=== PATIENT | male | born 1960 | race Caucasian/White ===

== ENCOUNTER 2020-03-14 11:54 | Emergency (ER) | payer MEDICARE ==
[2020-03-14 12:31] VITALS: TEMP 102.3
[2020-03-14] MEDS ORDERED: ACETAMINOPHEN TAB 325 MG TAB PO STA (12:58)
--- NOTE | 2020-03-14 13:43 | XR ---
EXAMINATION TYPE: XR chest 1V portable DATE OF EXAM: 03/14/2020 HISTORY: Shortness of breath. COMPARISON: None. TECHNIQUE: Single view of the chest is submitted. FINDINGS: Demonstrated are scattered senescent parenchymal change. Increased density in the lungs as well strandy basilar reflect developing infiltrate. Correlate clini brayan and consider progress studies. The heart is stable. Hilar and mediastinal structures are within normal limits. Degenerative changes are seen of the dorsal spine. IMPRESSION: 1. Increased density in the lungs as well strandy basilar reflect developing infiltrate. Correlate c linically and consider progress studies.
[2020-03-14] MEDS ORDERED: SODIUM CHLORIDE 0.9% 1,000 ML IV ONE (13:49)
[2020-03-14 13:50] LABS: Basophils % (A) 1 %; Eosinophils % (A) 0 %; HCT 45.5 % (39.0-53.0); Lymphocytes # (A) 0.8 k/uL (1.0-4.8); Lymphocytes % (A) 10 %; MCH 28.4 pg (25.0-35.0); MCV 86.3 fL (80.0-100.0); Mean Platelet Volume 6.8; Monocytes # (A) 0.6 k/uL (0-1.0); Monocytes % (A) 7 %; Neutrophils # (A) 6.1 k/uL (1.3-7.7); Neutrophils % (A) 80 %; Platelet Count 255 k/uL (150-450); RBC 5.27 m/uL (4.30-5.90); RDW 12.5 % (11.5-15.5); WBC 7.7 k/uL (3.8-10.6)
--- NOTE | 2020-03-14 13:51 | ED ---
SOB HPI - General Source: patient Mode of arrival: wheelchair Limitations: no limitations <Ana Neff - Last Filed: 03/14/20 14:16> <Peter Sepulveda - Last Filed: 03/14/20 14:54> - General Chief Complaint: Shortness of Breath Stated Complaint: Covid Symptoms Time Seen by Provider: 03/14/20 12:25 - History of Present Illness Initial Comments: 59-year-old male with significant CAD hx presenting today for chief complaint of generalized weakness fevers fatigue and SOB. Patient states that he was exposed to covert about 10 days ago. Patient states that a friend tested positive on Saturday of last week. Patient states by Saturday of the friend testing positive. His family was experiencing symptoms he states his has had cough shortness of breath and weakness. He states that his symptoms have consisted of fever generalized weakness fatigue and increasing shortness of breath. Patient denies any chest pain nausea vomiting diarrhea. He denies any neck stiffness but does endorse some headaches. Patient denies any visual changes localized weakness. Patient denies any pain deep inspiration or leg swelling. When shortest of breath increasing over the past 2 days he was concerned and presented to the emergency room for further evaluation (Ana Neff) - Related Data Allergies Allergy/AdvReac Type Severity Reaction Status Date / Time No Known Allergies Allergy Verified 03/14/20 12:08 Review of Systems ROS Other: All systems not noted in ROS Statement are negative. <Ana Neff - Last Filed: 03/14/20 14:16> ROS Other: All systems not noted in ROS Statement are negative. <Peter Sepulveda - Last Filed: 03/14/20 14:54> ROS Statement: Those systems with pertinent positive or pertinent negative responses have been documented in the HPI. Past Medical History Past Medical History: Hyperlipidemia, Hypertension, Myocardial Infarction ([place]) History of Any Multi-Drug Resistant Organisms: None Reported Past Surgical History: Heart Catheterization With Stent, Orthopedic Surgery Additional Past Surgical History / Comment(s): kindey surgery Past Psychological History: No Psychological Hx Reported Smoking Status: Never smoker Past Alcohol Use History: None Reported Past Drug Use History: None Reported <Ana Neff - Last Filed: 03/14/20 14:16> General Exam Limitations: no limitations <Ana Neff - Last Filed: 03/14/20 14:16> - General Exam Comments Initial Comments: General: The patient is awake and alert, in no distress Eye: +3 mm pupils are equal, round and reactive to light, extra-ocular movements are intact. No nystagmus. There is normal conjunctiva bilaterally. No signs of icterus. Ears, nose, mouth and throat: There are moist mucous membranes and no oral lesions. Neck: The neck is supple, there is no tenderness or JVD. Cardiovascular: There is a regular rate and rhythm. No murmur, rub or gallop is appreciated. Respiratory: Lungs are clear to auscultation, respirations are non-labored, breath sounds are equal. No wheezes, stridor, rales, or rhonchi. Gastrointestinal: Soft, non-distended, non-tender abdomen without masses or organomegaly noted. There is no rebound or guarding present. Musculoskeletal: Normal ROM, no tenderness. Strength 5/5. Sensation intact. Radial pulses equal bilaterally 2+. Neurological: A&O x 3. CN II-XII intact grossly, There are no obvious motor or sensory deficits. Coordination appears grossly intact. Speech is normal. Skin: Skin is warm and dry and no rashes or lesions are noted. No LE edema Psychiatric: Cooperative, appropriate mood & affect, normal judgment. (Ana Neff) Course <Ana Neff - Last Filed: 03/14/20 14:16> Vital Signs 03/14/20 03/14/20 03/14/20 12:04 12:24 13:26 Temperature 101.8 F H 102.3 F H Pulse Rate 85 83 Respiratory 18 14 Rate Blood Pressure 126/78 O2 Sat by Pulse 98 95 Oximetry 03/14/20 03/14/20 03/14/20 13:30 13:40 13:50 Temperature Pulse Rate 82 81 81 Respiratory 20 20 20 Rate Blood Pressure O2 Sat by Pulse 95 93 L 94 L Oximetry 03/14/20 03/14/20 03/14/20 14:00 14:10 14:20 Temperature Pulse Rate 79 80 80 Respiratory 20 19 20 Rate Blood Pressure O2 Sat by Pulse 92 L 93 L 93 L Oximetry 03/14/20 14:30 Temperature Pulse Rate 73 Respiratory 22 Rate Blood Pressure 113/74 O2 Sat by Pulse 95 Oximetry - Reevaluation(s) Reevaluation #1: 03/14/20 14:16 signed out to Derick pending [facility] will evaluated and dispo patient (Ana Neff) Medical Decision Making - Lab Data Result diagrams: 03/14/20 13:16 03/14/20 13:16 <AishwaryaAna Desir - Last Filed: 03/14/20 14:16> - Lab Data Result diagrams: 03/14/20 13:16 03/14/20 13:16 <Peter Sepulveda - Last Filed: 03/14/20 14:54> - Medical Decision Making Patient is signed out to me by physician events administrative assistant Shima Stringer. Briefly, patient is a 5-year-old male who was exposed to someone with coronavirus last week. He has been expressing worsening shortness of breath. Upon arrival patient was febrile with temperatures of 102.3. Plan + out was to follow-up w [facility] pending lab studies. CBC, coag panel, metabolic panel is unremarkable. CRP is 180.6. Coronavirus test is positive. Chest x-ray shows bilateral hazy infiltrates. Patient is reevaluated bedside has been stable medical condition. Is not hypoxic. Been symptomatic for approximately 4 days. Patient is agreeable for discharge. He can monitor his symptoms at home and seek immediate medical attention of his symptomatology worsens. Patient advised to buy a pulse oximeter to monitor his oxygen levels at home (Peter Sepulveda) - Lab Data Lab Results 03/14/20 03/14/20 03/14/20 Range/Units 13:16 13:16 13:16 WBC 7.7 (3.8-10.6) k/uL RBC 5.27 (4.30-5.90) m/uL Hgb 15.0 (13.0-17.5) gm/dL Hct 45.5 (39.0-53.0) % MCV 86.3 (80.0-100.0) fL MCH 28.4 (25.0-35.0) pg MCHC 33.0 (31.0-37.0) g/dL RDW 12.5 (11.5-15.5) % Plt Count 255 (150-450) k/uL MPV 6.8 Neutrophils % 80 % Lymphocytes % 10 % Monocytes % 7 % Eosinophils % 0 % Basophils % 1 % Neutrophils # 6.1 (1.3-7.7) k/uL Lymphocytes # 0.8 L (1.0-4.8) k/uL Monocytes # 0.6 (0-1.0) k/uL Eosinophils # 0.0 (0-0.7) k/uL Basophils # 0.0 (0-0.2) k/uL PT 10.3 (9.0-12.0) sec INR 1.0 (<1.2) APTT 25.0 (22.0-30.0) sec Sodium 135 L (137-145) mmol/L Potassium 4.4 (3.5-5.1) mmol/L Chloride 102 (98-107) mmol/L Carbon Dioxide 23 (22-30) mmol/L Anion Gap 10 mmol/L BUN 22 H (9-20) mg/dL Creatinine 0.93 (0.66-1.25) mg/dL Est GFR (CKD-EPI)AfAm >90 (>60 ml/min/1.73 sqM) Est GFR (CKD-EPI)NonAf 89 (>60 ml/min/1.73 sqM) Glucose 139 H (74-99) mg/dL Plasma Lactic Acid Jose (0.7-2.0) mmol/L Calcium 8.9 (8.4-10.2) mg/dL Magnesium 2.2 (1.6-2.3) mg/dL Total Bilirubin 1.1 (0.2-1.3) mg/dL AST 31 (17-59) U/L ALT 19 (4-49) U/L Alkaline Phosphatase 83 (38-126) U/L Lactate Dehydrogenase 751 H (313-618) U/L C-Reactive Protein 180.6 H (<10.0) mg/L Total Protein 7.0 (6.3-8.2) g/dL Albumin 4.0 (3.5-5.0) g/dL Coronavirus (PCR) (Not Detectd) 03/14/20 03/14/20 Range/Units 13:16 13:16 WBC (3.8-10.6) k/uL RBC (4.30-5.90) m/uL Hgb (13.0-17.5) gm/dL Hct (39.0-53.0) % MCV (80.0-100.0) fL MCH (25.0-35.0) pg MCHC (31.0-37.0) g/dL RDW (11.5-15.5) % Plt Count (150-450) k/uL MPV Neutrophils % % Lymphocytes % % Monocytes % % Eosinophils % % Basophils % % Neutrophils # (1.3-7.7) k/uL Lymphocytes # (1.0-4.8) k/uL Monocytes # (0-1.0) k/uL Eosinophils # (0-0.7) k/uL Basophils # (0-0.2) k/uL PT (9.0-12.0) sec INR (<1.2) APTT (22.0-30.0) sec Sodium (137-145) mmol/L Potassium (3.5-5.1) mmol/L Chloride (98-107) mmol/L Carbon Dioxide (22-30) mmol/L Anion Gap mmol/L BUN (9-20) mg/dL Creatinine (0.66-1.25) mg/dL Est GFR (CKD-EPI)AfAm (>60 ml/min/1.73 sqM) Est GFR (CKD-EPI)NonAf (>60 ml/min/1.73 sqM) Glucose (74-99) mg/dL Plasma Lactic Acid Jose 1.3 (0.7-2.0) mmol/L Calcium (8.4-10.2) mg/dL Magnesium (1.6-2.3) mg/dL Total Bilirubin (0.2-1.3) mg/dL AST (17-59) U/L ALT (4-49) U/L Alkaline Phosphatase (38-126) U/L Lactate Dehydrogenase (313-618) U/L C-Reactive Protein (<10.0) mg/L Total Protein (6.3-8.2) g/dL Albumin (3.5-5.0) g/dL Coronavirus (PCR) Detected A (Not Detectd) Disposition <Ana Neff L - Last Filed: 03/14/20 14:16> Is patient prescribed a controlled substance at d/c from ED?: No Time of Disposition: 14:54 <Peter Sepulveda - Last Filed: 03/14/20 14:54> Clinical Impression: COVID-19 Disposition: HOME SELF-CARE Condition: Fair Instructions (If sedation given, give patient instructions): Viral Pneumonia (ED) Additional Instructions: Today you were evaluated for symptoms consistent with upper respiratory infection. There is concern that perhaps your symptomatology may represent Covid 19. Your are stable for discharge, however it is instructed to to seek immediate medical attention especially if you develop worsening symptoms especially respiratory distress. In the meantime please remain in quarantine for 14 days. For any other questions please contact Renetta for here in emergency department or [facility] at [phone] Referrals: Maximiliano Torres DO [Primary Care Provider] - 1-2 days
[2020-03-14 13:59] LABS: Chloride 102 mmol/L (98-107); Prothrombin Time 10.3 sec (9.0-12.0)
[2020-03-14] MEDS ORDERED: SODIUM CHLORIDE 0.9% 1,000 ML IV SCH (14:00)
[2020-03-14 14:04] LABS: ALT 19 U/L (4-49); AST 31 U/L (17-59); African American GFR (CKD) >90 (>60 ml/min/1.73 sqM); Alkaline Phosphatase 83 U/L (38-126); Anion Gap 10 mmol/L; Blood Urea Nitrogen 22 mg/dL (9-20); Calcium 8.9 mg/dL (8.4-10.2); Carbon Dioxide 23 mmol/L (22-30); Glucose 139 mg/dL (74-99); LDH 751 U/L (313-618); Magnesium 2.2 mg/dL (1.6-2.3); Non-African American GFR(CKD) 89 (>60 ml/min/1.73 sqM); Potassium 4.4 mmol/L (3.5-5.1); Sodium 135 mmol/L (137-145); Total Bilirubin 1.1 mg/dL (0.2-1.3)
[2020-03-14] MEDS ORDERED: IBUPROFEN 600 MG TAB PO STA (14:07)
[2020-03-14 14:20] LABS: C Reactive Protein 180.6 mg/L (<10.0)
[2020-03-14 14:34] VITALS: BP 113/74; PULSE 73; RESP 22
[2020-03-14] MEDS ORDERED: DEXAMETHASONE SOD PHOSPHATE 10 MG/ML 1 ML VIAL IV STA (14:46)
[2020-03-15 02:50] LABS: Ferritin 651.4 ng/mL (22.0-322.0)
== END 2020-03-14 15:48 | disposition home or self-care (01) ==
LOC: EC 11:54
DX: U07.1 COVID-19 (principal); I10 Essential (primary) hypertension; I25.2 Old myocardial infarction; I25.10 Atherosclerotic heart disease of native coronary artery without angina pectoris; Z95.5 Presence of coronary angioplasty implant and graft
CPT/HCPCS: 36415; 93005; 80053; 82728; 83605; 83615; 83735; 85025; 85610; 85730; 86140; 87040; 84145; 87635; 71045; 99285; 96374; 96361; J1100

== ENCOUNTER 2020-03-15 09:45 | Inpatient (IN) | payer MEDICARE ==
--- NOTE | 2020-03-15 10:10 | ED ---
SOB HPI - General Chief Complaint: Shortness of Breath Stated Complaint: COVID+ Time Seen by Provider: 03/15/20 09:45 Source: EMS Mode of arrival: EMS - History of Present Illness Initial Comments: Patient is a 59-year-old male with past history of coronary artery disease status post stent placement, hypertension and hyperlipidemia who presents emergency Department with reported shortness of breath. Patient was seen yesterday for similar complaint was diagnosed with Covid 19. His vital signs were stable and therefore the patient was discharged home. He reports that tonight he got worse. EMS found him extremely short of breath with increased worker breathing to where they threw him on high flow oxygen. A sat was not obtained. Patient does arrive on a nonrebreather. He denies having any chest pain. He did take Motrin Tylenol last night. Denies having any fevers. Reports that his first symptoms were last . He denies history of lung issues. No nausea, vomiting or diaphoresis. No diarrhea. No other alleviating, precipitating or modifying factors - Related Data Home Medications Medication Instructions Recorded Confirmed Aspirin EC [Ecotrin Low Dose] 81 mg PO DAILY 03/15/20 03/15/20 Atorvastatin Calcium [Lipitor] 20 mg PO DAILY 03/15/20 03/15/20 Clopidogrel [Plavix] 75 mg PO DAILY 03/15/20 03/15/20 Enalapril [Vasotec] 10 mg PO DAILY 03/15/20 03/15/20 Gabapentin [Neurontin] 800 mg PO TID 03/15/20 03/15/20 Isosorbide Mononitrate ER [Imdur] 30 mg PO DAILY 03/15/20 03/15/20 Ranitidine HCl 150 mg PO BID 03/15/20 03/15/20 Zolpidem Tartrate [Ambien Cr] 12.5 mg PO HS PRN 03/15/20 03/15/20 Allergies Allergy/AdvReac Type Severity Reaction Status Date / Time No Known Allergies Allergy Verified 03/15/20 10:11 Review of Systems ROS Statement: Those systems with pertinent positive or pertinent negative responses have been documented in the HPI. ROS Other: All systems not noted in ROS Statement are negative. Past Medical History Past Medical History: Hyperlipidemia, Hypertension, Myocardial Infarction ([place]) Additional Past Medical History / Comment(s): kidney stones History of Any Multi-Drug Resistant Organisms: None Reported Past Surgical History: Heart Catheterization With Stent, Orthopedic Surgery Additional Past Surgical History / Comment(s): kindey surgery Past Psychological History: No Psychological Hx Reported Smoking Status: Never smoker Past Alcohol Use History: None Reported Past Drug Use History: None Reported General Exam General appearance: alert, in no apparent distress Head exam: Present: atraumatic, normocephalic, normal inspection Eye exam: Present: normal appearance, PERRL, EOMI. Absent: scleral icterus, conjunctival injection, periorbital swelling ENT exam: Present: normal exam, mucous membranes moist Neck exam: Present: normal inspection. Absent: tenderness, meningismus, l ymphadenopathy Respiratory exam: Present: accessory muscle use (tachypnia at rest). Absent: respiratory distress, wheezes, rales, rhonchi, stridor Cardiovascular Exam: Present: regular rate, normal rhythm, normal heart sounds. Absent: systolic murmur, diastolic murmur, rubs, gallop, clicks GI/Abdominal exam: Present: soft, normal bowel sounds. Absent: distended, tenderness, guarding, rebound, rigid Extremities exam: Present: normal inspection, full ROM, normal capillary refill. Absent: tenderness, pedal edema, joint swelling, calf tenderness Back exam: Present: normal inspection Neurological exam: Present: alert, oriented X3, CN II-XII intact Psychiatric exam: Present: normal affect, normal mood Skin exam: Present: warm, dry, intact, normal color. Absent: rash Course Vital Signs 03/15/20 03/15/20 03/15/20 09:46 09:55 10:00 Temperature 98.4 F Pulse Rate 94 98 86 Pulse Rate [ Pulse Oximetery ] Respiratory 20 20 Rate Blood Pressure 136/93 140/97 Blood Pressure [Right Arm] O2 Sat by Pulse 97 97 Oximetry 03/15/20 03/15/20 03/15/20 10:30 11:00 11:30 Temperature 99.1 F Pulse Rate 91 83 76 Pulse Rate [ Pulse Oximetery ] Respiratory 20 20 20 Rate Blood Pressure 138/84 106/94 142/107 Blood Pressure [Right Arm] O2 Sat by Pulse 96 98 Oximetry 03/15/20 03/15/20 03/15/20 12:00 12:31 13:00 Temperature 99.1 F 99 F Pulse Rate 84 86 95 Pulse Rate [ Pulse Oximetery ] Respiratory 17 16 18 Rate Blood Pressure 136/91 124/72 128/75 Blood Pressure [Right Arm] O2 Sat by Pulse 97 96 96 Oximetry 03/15/20 03/15/20 14:00 15:53 Temperature 99.2 F 98.7 F Pulse Rate 98 Pulse Rate [ 67 Pulse Oximetery ] Respiratory 18 18 Rate Blood Pressure 122/72 Blood Pressure 128/69 [Right Arm] O2 Sat by Pulse 97 95 Oximetry Medical Decision Making - Medical Decision Making Upon arrival patient is placed into room 4. A thorough history and physical exam was performed. Patient does have significant increased work of breathing. He is placed on 4 L nasal cannula. Laboratory studies were conducted. Patient's chart is reviewed. Chest x-ray was performed which is concerning for Covid pneumonia. As the patient's symptoms are worsening and he does have significant shortness of breath I did recommend hospital admission for which the patient did agree to. Patient was given a dose of Decadron and placed on Lo venox. I discussed the case with Dr. Paul who accepted admission. The patient is currently awaiting a bed on the floor - Lab Data Result diagrams: 03/19/20 05:29 03/19/20 05:29 Lab Results 03/15/20 03/15/20 03/15/20 Range/Units 10:12 10:12 10:12 WBC 11.6 H (3.8-10.6) k/uL RBC 5.33 (4.30-5.90) m/uL Hgb 15.2 (13.0-17.5) gm/dL Hct 45.8 (39.0-53.0) % MCV 86.0 (80.0-100.0) fL MCH 28.6 (25.0-35.0) pg MCHC 33.3 (31.0-37.0) g/dL RDW 12.4 (11.5-15.5) % Plt Count 276 (150-450) k/uL MPV 6.7 Neutrophils % 86 % Lymphocytes % 8 % Monocytes % 4 % Eosinophils % 0 % Basophils % 0 % Neutrophils # 10.0 H (1.3-7.7) k/uL Lymphocytes # 1.0 (1.0-4.8) k/uL Monocytes # 0.5 (0-1.0) k/uL Eosinophils # 0.1 (0-0.7) k/uL Basophils # 0.0 (0-0.2) k/uL PT 9.8 (9.0-12.0) sec INR 0.9 (<1.2) APTT 22.5 (22.0-30.0) sec D-Dimer 0.77 H (<0.60) mg/L FEU Sodium 139 (137-145) mmol/L Potassium 4.4 (3.5-5.1) mmol/L Chloride 105 (98-107) mmol/L Carbon Dioxide 27 (22-30) mmol/L Anion Gap 7 mmol/L BUN 26 H (9-20) mg/dL Creatinine 0.84 (0.66-1.25) mg/dL Est GFR (CKD-EPI)AfAm >90 (>60 ml/min/1.73 sqM) Est GFR (CKD-EPI)NonAf >90 (>60 ml/min/1.73 sqM) Glucose 140 H (74-99) mg/dL Plasma Lactic Acid Jose (0.7-2.0) mmol/L Calcium 9.0 (8.4-10.2) mg/dL Magnesium 2.3 (1.6-2.3) mg/dL Ferritin 757.8 H (22.0-322.0) ng/mL Total Bilirubin 1.3 (0.2-1.3) mg/dL AST 35 (17-59) U/L ALT 22 (4-49) U/L Alkaline Phosphatase 84 (38-126) U/L Lactate Dehydrogenase 857 H (313-618) U/L Troponin I (0.000-0.034) ng/mL C-Reactive Protein 133.6 H (<10.0) mg/L Total Protein 7.1 (6.3-8.2) g/dL Albumin 4.0 (3.5-5.0) g/dL Procalcitonin (0.02-0.09) ng/mL 03/15/20 03/15/20 03/15/20 Range/Units 10:12 10:12 10:29 WBC (3.8-10.6) k/uL RBC (4.30-5.90) m/uL Hgb (13.0-17.5) gm/dL Hct (39.0-53.0) % MCV (80.0-100.0) fL MCH (25.0-35.0) pg MCHC (31.0-37.0) g/dL RDW (11.5-15.5) % Plt Count (150-450) k/uL MPV Neutrophils % % Lymphocytes % % Monocytes % % Eosinophils % % Basophils % % Neutrophils # (1.3-7.7) k/uL Lymphocytes # (1.0-4.8) k/uL Monocytes # (0-1.0) k/uL Eosinophils # (0-0.7) k/uL Basophils # (0-0.2) k/uL PT (9.0-12.0) sec INR (<1.2) APTT (22.0-30.0) sec D-Dimer (<0.60) mg/L FEU Sodium (137-145) mmol/L Potassium (3.5-5.1) mmol/L Chloride (98-107) mmol/L Carbon Dioxide (22-30) mmol/L Anion Gap mmol/L BUN (9-20) mg/dL Creatinine (0.66-1.25) mg/dL Est GFR (CKD-EPI)AfAm (>60 ml/min/1.73 sqM) Est GFR (CKD-EPI)NonAf (>60 ml/min/1.73 sqM) Glucose (74-99) mg/dL Plasma Lactic Acid Jose 1.8 (0.7-2.0) mmol/L Calcium (8.4-10.2) mg/dL Magnesium (1.6-2.3) mg/dL Ferritin (22.0-322.0) ng/mL Total Bilirubin (0.2-1.3) mg/dL AST (17-59) U/L ALT (4-49) U/L Alkaline Phosphatase (38-126) U/L Lactate Dehydrogenase (313-618) U/L Troponin I <0.012 (0.000-0.034) ng/mL C-Reactive Protein (<10.0) mg/L Total Protein (6.3-8.2) g/dL Albumin (3.5-5.0) g/dL Procalcitonin 0.19 H (0.02-0.09) ng/mL - EKG Data EKG Comments: EKG demonstrates normal sinus rhythm with a ventricular rate of 82. KS interval 160. QRS 98. QTC of 422. Inverted T-wave in V1-V2. Baseline artifact V2 V3 Disposition Clinical Impression: COVID-19, Acute respiratory insufficiency Disposition: ADMITTED IP TO THIS HOSP Condition: Serious Is patient prescribed a controlled substance at d/c from ED?: No Decision to Admit Reason: Admit from EC Decision Date: 03/15/20 Decision Time: 11:19
[2020-03-15 10:28] LABS: Basophils % (A) 0 %; Eosinophils # (A) 0.1 k/uL (0-0.7); Eosinophils % (A) 0 %; HCT 45.8 % (39.0-53.0); HGB 15.2 gm/dL (13.0-17.5); Lymphocytes % (A) 8 %; MCH 28.6 pg (25.0-35.0); MCHC 33.3 g/dL (31.0-37.0); Mean Platelet Volume 6.7; Monocytes # (A) 0.5 k/uL (0-1.0); Monocytes % (A) 4 %; Neutrophils % (A) 86 %; Platelet Count 276 k/uL (150-450); RBC 5.33 m/uL (4.30-5.90); RDW 12.4 % (11.5-15.5); WBC 11.6 k/uL (3.8-10.6)
--- NOTE | 2020-03-15 10:40 | XR ---
EXAMINATION TYPE: XR chest 1V portable DATE OF EXAM: 03/15/2020 COMPARISON: Prior chest x-ray 03/14/2020 HISTORY: Cough, suspected Covid pneumonia TECHNIQUE: Single frontal view of the chest is obtained. FINDINGS: Patchy bilateral airspace disease is noted. There may be some atelectatic change. No evide nt pneumothorax or pleural effusion. Cardiac mediastinal silhouette, pulmonary vascularity and jose a re unchanged. Right hemidiaphragm is elevated. IMPRESSION: Correlate for pneumonia.
[2020-03-15 10:46] LABS: ALT 22 U/L (4-49); AST 35 U/L (17-59); African American GFR (CKD) >90 (>60 ml/min/1.73 sqM); Alkaline Phosphatase 84 U/L (38-126); Anion Gap 7 mmol/L; Blood Urea Nitrogen 26 mg/dL (9-20); Carbon Dioxide 27 mmol/L (22-30); Chloride 105 mmol/L (98-107); Glucose 140 mg/dL (74-99); LDH 857 U/L (313-618); Magnesium 2.3 mg/dL (1.6-2.3); Non-African American GFR(CKD) >90 (>60 ml/min/1.73 sqM); Potassium 4.4 mmol/L (3.5-5.1); Sodium 139 mmol/L (137-145); Total Bilirubin 1.3 mg/dL (0.2-1.3); Total Protein 7.1 g/dL (6.3-8.2)
[2020-03-15 10:51] LABS: INR 0.9 (<1.2); Partial Thromboplastin Time 22.5 sec (22.0-30.0); Prothrombin Time 9.8 sec (9.0-12.0)
[2020-03-15 11:04] LABS: D-Dimer 0.77 mg/L FEU (<0.60)
[2020-03-15 11:09] LABS: C Reactive Protein 133.6 mg/L (<10.0)
[2020-03-15] MEDS ORDERED: ACETAMINOPHEN TAB 325 MG TAB PO PRN (11:19)
[2020-03-15] MEDS ORDERED: NALOXONE 0.4 MG/ML 1 ML VIAL IV PRN (11:19)
[2020-03-15] MEDS ORDERED: DEXAMETHASONE SOD PHOSPHATE 10 MG/ML 1 ML VIAL IV STA (11:22)
[2020-03-15] MEDS ORDERED: ENOXAPARIN 40 MG/0.4 ML SYRINGE SQ SCH (11:30)
[2020-03-15 15:46] LABS: Ferritin 757.8 ng/mL (22.0-322.0)
--- NOTE | 2020-03-15 19:05 | P.CNPUL ---
History of Present Illness Consult date: 03/15/20 Reason for consult: pneumonia History of present illness: 59-year-old male patient coming in for an acute Covid 19 related pneumonia. The patient is known to have coronary artery disease and previous coronary stenting. The patient is also known to have hypertension and hyperlipidemia. He presented to the ED with shortness of breath. He was apparently in the emergency department 24 hours ago and he was released home as the patient was qu ite stable. His condition got worse and for that reason he came into the hospital because of worsening shortness of breath. Upon arrival to the ED, the patient was brought in with a nonrebreather facemask. He denied having any chest pain. Denied having any fever. He had a white cell count of 11.6 and hemoglobin of 15.2. D-dimer was at 0.77. The rest of the correlation profile was within normal limits. Renal function was stable. Electrodes were stable. Ferritin level was 757. LDH level was a 757. C-reactive protein was 133 and a troponin was negative. The pro-calcitonin was 0.19. The chest x-ray showed patchy bilateral airspace disease consistent with pneumonia. The patient had no evidence of any pneumothorax. The right hemidiaphragm was elevated. Review of Systems Constitutional: Reports fatigue, Reports weakness Eyes: denies as per HPI, denies blurred vision, denies bulging eye, denies decreased vision, denies diplopia, denies discharge, denies dry eye, denies irritation, denies itching, denies pain, denies photophobia, denies loss of peripheral vision, denies loss of vision, denies tunnel vision/blind spots Ears: deny: decreased hearing, ear discharge, earache, tinnitus Ears, nose, mouth and throat: Denies headache, Denies sore throat Breasts: absent: as per HPI, gynecomastia Cardiovascular: Reports decreased exercise tolerance, Reports dyspnea on exertion Respiratory: Reports cough, Reports dyspnea Gastrointestinal: Reports as per HPI Genitourinary: Reports as per HPI Musculoskeletal: Reports as per HPI Musculoskeletal: absent: ankle pain, ankle stiffness, ankle swelling Integumentary: Reports as per HPI Neurological: Reports as per HPI, Reports weakness Psychiatric: Reports as per HPI Endocrine: Reports as per HPI Hematologic/Lymphatic: Reports as per HPI Allergic/Immunologic: Reports as per HPI Past Medical History Past Medical History: Coronary Artery Disease (CAD), Hyperlipidemia, Hypertension, Myocardial Infarction ([place]) Additional Past Medical History / Comment(s): KIDNEY STONES Last Myocardial Infarction Date:: 03/15/2001 History of Any Multi-Drug Resistant Organisms: None Reported Past Surgical History: Heart Catheterization With Stent, Hernia Repair, Orth opedic Surgery Additional Past Surgical History / Comment(s): HEART CATH WITH STENT X7, HERNIA REPAIR APRIL 2019 AT [facility], LEFT SHOULDER REPAIR, RIGHT KNEE REPAIR, KIDN EY STONE REMOVED NOVEMBER 2019 AT [facility] Past Anesthesia/Blood Transfusion Reactions: No Reported Reaction Date of Last Stent Placement:: [place] Past Psychological History: No Psychological Hx Reported Smoking Status: Never smoker Past Alcohol Use History: None Reported Past Drug Use History: None Reported Medications and Allergies Home Medications Medication Instructions Recorded Confirmed Type Aspirin EC [Ecotrin Low Dose] 81 mg PO DAILY 03/15/20 03/15/20 History Atorvastatin Calcium [Lipitor] 20 mg PO DAILY 03/15/20 03/15/20 History Clopidogrel [Plavix] 75 mg PO DAILY 03/15/20 03/15/20 History Enalapril [Vasotec] 10 mg PO DAILY 03/15/20 03/15/20 History Gabapentin [Neurontin] 800 mg PO TID 03/15/20 03/15/20 History Isosorbide Mononitrate ER [Imdur] 30 mg PO DAILY 03/15/20 03/15/20 History Ranitidine HCl 150 mg PO BID 03/15/20 03/15/20 History Zolpidem Tartrate [Ambien Cr] 12.5 mg PO HS PRN 03/15/20 03/15/20 History Allergies Allergy/AdvReac Type Severity Reaction Status Date / Time No Known Allergies Allergy Verified 03/15/20 10:11 Physical Exam Vitals: Vital Signs Temp Pulse Pulse Resp BP BP Pulse Ox 03/15/20 15:53 98.7 F 67 18 128/69 95 03/15/20 14:00 99.2 F 98 18 122/72 97 03/15/20 13:00 99 F 95 18 128/75 96 03/15/20 12:31 99.1 F 86 16 124/72 96 03/15/20 12:00 84 17 136/91 97 03/15/20 11:30 99.1 F 76 20 142/107 98 03/15/20 11:00 83 20 106/94 96 03/15/20 10:30 91 20 138/84 03/15/20 10:00 86 20 140/97 97 03/15/20 09:55 98 20 97 03/15/20 09:46 98.4 F 94 136/93 Intake and Output 03/15/20 03/15/20 03/15/20 06:59 14:59 22:59 Other: Voiding Method Urinal Weight 102.058 kg 102.058 kg Gen. appearance the patient is calm comfortable no acute distress currently on oxygen by nasal cannula at 6 L per minute. Head exam was generally normal. There was no scleral icterus or corneal arcus. Mucous membranes were moist. Neck was supple and without jugular venous distension, thyromegaly, or carotid bruits. Carotids were easily palpable bilaterally. There was no adenopathy. Lungs sounds are diminished in the patient's correct in lung bases bilaterally. Breath sounds are more diminished in the right lung base and the patient's crackles bilaterally. Cardiac exam revealed the PMI to be normally situated and sized. The rhythm was regular and no extrasystoles were noted during several minutes of auscultation. The first and second heart sounds were normal and physiologic splitting of the second heart sound was noted. There were no murmurs, rubs, clicks, or gallops. Abdominal exam revealed normal bowel sounds. The abdomen was soft, non-tender, and without masses, organomegaly, or appreciable enlargement of the abdominal aorta. Examination of the extremities revealed easily palpable radial, femoral and ped al pulses. There was no cyanosis, clubbing or edema. Examination of the skin revealed no evidence of significant rashes, suspicious appearing nevi or other concerning lesions. Neurologically, the patient is awake and alert and the patient does not have any focal neurological deficit. Cranial nerves are essentially intact. Results - Laboratory Findings CBC and BMP: 03/15/20 10:12 03/15/20 10:12 PT/INR, D-dimer PT 9.8 sec (9.0-12.0) 03/15/20 10:12 INR 0.9 (<1.2) 03/15/20 10:12 D-Dimer 0.77 mg/L FEU (<0.60) H 03/15/20 10:12 Abnormal lab findings: Abnormal Labs 03/15/20 03/15/20 03/15/20 10:12 10:12 10:12 WBC 11.6 H Neutrophils # 10.0 H D-Dimer 0.77 H BUN 26 H Glucose 140 H Ferritin 757.8 H Lactate Dehydrogenase 857 H C-Reactive Protein 133.6 H Procalcitonin 03/15/20 10:12 WBC Neutrophils # D-Dimer BUN Glucose Ferritin Lactate Dehydrogenase C-Reactive Protein Procalcitonin 0.19 H - Diagnostic Findings Chest x-ray: image reviewed Assessment and Plan Plan: 1 acute Covid 19 pneumonia. The patient presenting to the hospital because of worsening shortness of breath and hypoxemia in addition to bilateral patchy airspace disease/infiltrates consistent with pneumonia 2 acute hypoxic respiratory failure secondary to above 3 leukocytosis, likely reactive 4 elevated inflammatory markers secondary to Covid 19 related infection 5 coronary artery disease with previous coronary intervention and stenting 6 hyperlipidemia 7 hypertension 8 history of nephrolithiasis/kidney stones Plan Supplement the patient with O2 @ 6 L per minute nasal cannula and titrate the flow to maintain a saturation above 90% Start the patient on Decadron 6 mg by mouth daily Start the patient on Remdesivir per protocol for the next 5 days Started patient on supplements including vitamin C, vitamin D and Pepcid Monitor the fever pattern and inflammatory markers Follow-up d-dimer and put the patient on Lovenox for DVT prophylaxis 40 mg subcu daily Continue aspirin. Continue Plavix. Resume home medications. We'll continue to follow.
[2020-03-15] MEDS: FAMOTIDINE 20 MG TAB PO SCH (20:02)
[2020-03-15] MEDS: ENOXAPARIN 40 MG/0.4 ML SYRINGE SQ SCH (20:02)
--- NOTE | 2020-03-15 20:34 | P.HPIM ---
History of Present Illness H&P Date: 03/15/20 Chief Complaint: Exertional dyspnea. Patient is a 59-year-old male with a known history of coronary disease with history of stent placement, hypertension, hyperlipidemia, history of [place] and no prior history of smoking presents to ER with complaints of shortness of breath and exertional dyspnea. Patient was seen in the ER yesterday with symptoms of shortness of breath and cough and subjective fevers. Patient has been having symptoms since last Saturday. Also states that he lost smell and taste. Patient states that he visited family in [place] and came back recently. Patient was tested positive for Covid 19. Patient was feeling better and was sent home. Today he presented with worsening symptoms of shortness of breath. Patient was initially placed on 100% nonrebreather with 15 L oxygen and currently titrate down to 6 L. Patient does have minimal cough. Does have subjective chills and myalgias. No headache or dizziness or lightheadedness. Chest x-ray showed correlate for pneumonia. EKG showed normal sinus rhythm Laboratory data showed WBC 11.6, hemoglobin 15.1 platelets 276 D-dimer 0.77 BUN 26 and creatinine 0.84 Ferritin 757.8, LDH 857, CRP 133 and procalcitonin 0.19 Review of Systems Constitutional: Patient does have subjective fevers and chills. Generalized weakness. Abdomen: Patient denied nausea vomiting and diarrhea and abdominal pain. Cardiovascular: Patient denies any chest pain or short of breath no palpitations. Respiratory: Cough without sputum production. Exertional dyspnea and shortness of breath. Neurologic: Patient denied any numbness or tingling headache. Musculoskeletal: Patient denies any complaints of joint swelling or deformity. Skin: Negative Psychiatric: Negative Endocrine: No heat or cold intolerance. No recent weight gain. Genitourinary: No dysuria or hematuria. All other 14 point ROS negative except the above Past Medical History Past Medical History: Hyperlipidemia, Hypertension, Myocardial Infarction ([place]) Additional Past Medical History / Comment(s): kidney stones History of Any Multi-Drug Resistant Organisms: None Reported Past Surgical History: Heart Catheterization With Stent, Orthopedic Surgery Additional Past Surgical History / Comment(s): kindey surgery Past Psychological History: No Psychological Hx Reported Smoking Status: Never smoker Past Alcohol Use History: None Reported Past Drug Use History: None Reported Medications and Allergies Home Medications Medication Instructions Recorded Confirmed Type Aspirin EC [Ecotrin Low Dose] 81 mg PO DAILY 03/15/20 03/15/20 History Atorvastatin Calcium [Lipitor] 20 mg PO DAILY 03/15/20 03/15/20 History Clopidogrel [Plavix] 75 mg PO DAILY 03/15/20 03/15/20 History Enalapril [Vasotec] 10 mg PO DAILY 03/15/20 03/15/20 History Gabapentin [Neurontin] 800 mg PO TID 03/15/20 03/15/20 History Isosorbide Mononitrate ER [Imdur] 30 mg PO DAILY 03/15/20 03/15/20 History Ranitidine HCl 150 mg PO BID 03/15/20 03/15/20 History Zolpidem Tartrate [Ambien Cr] 12.5 mg PO HS PRN 03/15/20 03/15/20 History Allergies Allergy/AdvReac Type Severity Reaction Status Date / Time No Known Allergies Allergy Verified 03/15/20 10:11 Physical Exam Vitals: Vital Signs Temp Pulse Resp BP Pulse Ox 03/15/20 13:00 99 F 95 18 128/75 96 03/15/20 12:31 99.1 F 86 16 124/72 96 03/15/20 12:00 84 17 136/91 97 03/15/20 11:30 99.1 F 76 20 142/107 98 03/15/20 11:00 83 20 106/94 96 03/15/20 10:30 91 20 138/84 03/15/20 10:00 86 20 140/97 97 03/15/20 09:55 98 20 97 03/15/20 09:46 98.4 F 94 136/93 Intake and Output 03/14/20 03/15/20 03/15/20 22:59 06:59 14:59 Other: Weight 102.058 kg PHYSICAL EXAMINATION: Patient is lying in the bed comfortably, no acute distress, awake alert and orie nted.. HEENT: Normocephalic. Neck is supple. Pupils reactive. Nostrils clear. Oral cavity is moist. Ears reveal no drainage. Neck reveals no JVD, carotid bruits, or thyromegaly. CHEST EXAMINATION: Trachea is central. Symmetrical expansion. Lung sparks clear to auscultation and percussion. CARDIAC: Normal S1, S2 with no gallops. No murmurs ABDOMEN: Soft. Bowel sounds normal. No organomegaly. No abdominal bruits. Extremities: reveal no edema. No clubbing or cyanosis Neurologically awake, alert, oriented x3 with well-coordinated movements. No focal deficits noted Skin: No rash or skin lesions. Psychiatric: Coperative. Nonsuicidal Musculoskeletal: No joint swelling or deformity. Normal range of motion. Results CBC & Chem 7: 03/15/20 10:12 03/15/20 10:12 Labs: Abnormal Lab Results - Last 24 Hours (Table) 03/15/20 03/15/20 03/15/20 Range/Units 10:12 10:12 10:12 WBC 11.6 H (3.8-10.6) k/uL Neutrophils # 10.0 H (1.3-7.7) k/uL D-Dimer 0.77 H (<0.60) mg/L FEU BUN 26 H (9-20) mg/dL Glucose 140 H (74-99) mg/dL Lactate Dehydrogenase 857 H (313-618) U/L C-Reactive Protein 133.6 H (<10.0) mg/L Thrombosis Risk Factor Assmnt - DVT/VTE Prophylaxis DVT/VTE Prophylaxis: Pharmacologic Prophylaxis ordered Assessment and Plan Assessment: Acute COVID-19 pneumonia Acute hypoxic respiratory failure secondary to pneumonia. Elevated inflammatory markers Coronary artery disease with history of stent placement Hypertension Hyperlipidemia DVT prophylaxis currently on Lovenox Plan: Patient will be continued on oxygen at 6 L. Will start on Decadron 6 mg daily and Lovenox 40 mg subcu twice daily. Pulmonary was consulted. Chest x-ray showed pneumonia. Patient will be a candidate for remdesivir therapy. Continue with home medications and follow-up closely. Isolation with droplet and contact precautions. Time with Patient: Greater than 30
[2020-03-15] MEDS ORDERED: REMDESIVIR (EUA) 200 MG in SODIUM CHLORIDE 0.9% 250 ML IVPB ONE (21:00)
[2020-03-15] MEDS: ASCORBIC ACID 500 MG TAB PO SCH (22:06)
[2020-03-15] MEDS: ZINC SULFATE 220 MG CAP PO SCH (22:06)
[2020-03-16 07:02] LABS: Basophils # (A) 0.1 k/uL (0-0.2); Basophils % (A) 0 %; Eosinophils % (A) 0 %; HCT 45.6 % (39.0-53.0); Lymphocytes # (A) 0.9 k/uL (1.0-4.8); Lymphocytes % (A) 6 %; MCH 29.1 pg (25.0-35.0); MCHC 32.9 g/dL (31.0-37.0); MCV 88.5 fL (80.0-100.0); Mean Platelet Volume 6.9; Monocytes # (A) 0.6 k/uL (0-1.0); Monocytes % (A) 4 %; Neutrophils # (A) 13.3 k/uL (1.3-7.7); Neutrophils % (A) 89 %; Platelet Count 324 k/uL (150-450); RBC 5.15 m/uL (4.30-5.90); RDW 12.2 % (11.5-15.5)
[2020-03-16] MEDS: ASCORBIC ACID 500 MG TAB PO SCH (08:58)
[2020-03-16] MEDS: ZINC SULFATE 220 MG CAP PO SCH (08:58)
[2020-03-16] MEDS: lisinopriL 20 MG TAB PO SCH (08:58)
[2020-03-16] MEDS: ASPIRIN 81 MG PO SCH (08:58)
[2020-03-16] MEDS: ISOSORBIDE MONONITRATE ER 30 MG TAB.ER.24H PO SCH (08:58)
[2020-03-16] MEDS: ATORVASTATIN 20 MG TAB PO SCH (08:58)
[2020-03-16] MEDS: CLOPIDOGREL 75 MG TAB PO SCH (08:58)
[2020-03-16] MEDS: FAMOTIDINE 20 MG TAB PO SCH ×2 (08:58→20:44)
[2020-03-16] MEDS: ENOXAPARIN 40 MG/0.4 ML SYRINGE SQ SCH ×2 (08:58→20:44)
[2020-03-16] MEDS: dexAMETHasone 2 MG TAB PO SCH (08:59)
[2020-03-16 09:22] LABS: African American GFR (CKD) 94.4 (60.0-200.0); Calcium 8.8 mg/dL (8.7-10.3); Non-African American GFR(CKD) 81.4 (60.0-200.0)
--- NOTE | 2020-03-16 16:45 | P.PN ---
Subjective Progress Note Date: 03/16/20 Principal diagnosis: COVID19 pneumonitis 59-year-old male patient coming in for an acute Covid 19 related pneumonia. The patient is known to have coronary artery disease and previous coronary stenting. The patient is also known to have hypertension and hyperlipidemia. He pres ented to the ED with shortness of breath. He was apparently in the emergency department 24 hours ago and he was released home as the patient was quite stable. His condition got worse and for that reason he came into the hospital because of worsening shortness of breath. Upon arrival to the ED, the patient was brought in with a nonrebreather facemask. He denied having any chest pain. Denied having any fever. He had a white cell count of 11.6 and hemoglobin of 15.2. D-dimer was at 0.77. The rest of the correlation profile was within normal limits. Renal function was stable. Electrodes were stable. Ferritin level was 757. LDH level was a 757. C-reactive protein was 133 and a troponin was negative. The pro-calcitonin was 0.19. The chest x-ray showed patchy bilateral airspace disease consistent with pneumonia. The patient had no evidence of any pneumothorax. The right hemidiaphragm was elevated. On 03/16/2020 patient seen in follow-up on medical surgical floor, he is on 2 L of oxygen pulse ox 94%, today is his second day of Remdesivir, he is on oral Decadron, she is feeling better today, he is on oral Pepcid, and Lovenox for anticoagulation. No acute events overnight. No cough. No chest pain. Objective - Vital Signs Vital signs: Vital Signs Temp 98.0 F 03/16/20 15:00 Pulse 57 L 03/16/20 15:00 Resp 18 03/16/20 15:00 BP 113/67 03/16/20 15:00 Pulse Ox 95 03/16/20 15:00 Intake & Output 03/15/20 03/16/20 03/16/20 18:59 06:59 18:59 Output Total 300 Balance -300 Weight 102.058 kg Output: Urine 300 Other: Voiding Method Urinal Urinal # Voids 2 - Exam GENERAL EXAM: Alert, very pleasant, 59-year-old white male, on 2 L of oxygen and pulse ox 95% comfortable in no apparent distress. HEAD: Normocephalic/atraumatic. EYES: Normal reaction of pupils, equal size. Conjunctiva pink, sclera white. NOSE: Clear with pink turbinates. THROAT: No erythema or exudates. NECK: No masses, no JVD, no thyroid enlargement, no adenopathy. CHEST: No chest wall deformity. Symmetrical expansion. LUNGS: Equal air entry with no crackles, wheeze, rhonchi or dullness. CVS: Regular rate and rhythm, normal S1 and S2, no gallops, no murmurs, no rubs ABDOMEN: Soft, nontender. No hepatosplenomegaly, normal bowel sounds, no guarding or rigidity. EXTREMITIES: No clubbing, no edema, no cyanosis, 2+ pulses and upper and lower extremities. MUSCULOSKELETAL: Muscle strength and tone normal. SPINE: No scoliosis or deformity SKIN: No rashes CENTRAL NERVOUS SYSTEM: Alert and oriented -3. No focal deficits, tone is n ormal in all 4 extremities. PSYCHIATRIC: Alert and oriented -3. Appropriate affect. Intact judgment and insight. - Labs CBC & Chem 7: 03/16/20 05:47 03/16/20 05:47 Labs: Abnormal Lab Results - Last 24 Hours (Table) 03/16/20 03/16/20 Range/Units 05:47 05:47 WBC 15.0 H (3.8-10.6) k/uL Neutrophils # 13.3 H (1.3-7.7) k/uL Lymphocytes # 0.9 L (1.0-4.8) k/uL BUN/Creatinine Ratio 26.00 H (12.00-20.00) Ratio Glucose 116 H (70-110) mg/dL Microbiology - Last 24 Hours (Table) 03/15/20 10:12 Blood Culture - Preliminary Blood No Growth after 24 hours Assessment and Plan Plan: Assessment: 1 acute Covid 19 pneumonia. The patient presenting to the hospital because of worsening shortness of breath and hypoxemia in addition to bilateral patchy airspace disease/infiltrates consistent with pneumonia 2 acute hypoxic respiratory failure secondary to above 3 leukocytosis, likely reactive 4 elevated inflammatory markers secondary to Covid 19 related infection 5 coronary artery disease with previous coronary intervention and stenting 6 hyperlipidemia 7 hypertension 8 history of nephrolithiasis/kidney stones Plan Continue current medical treatment, continue Decadron, Remdesivir, continue Pepcid, Lovenox. Will follow inflammatory markers, weaning FiO2, Med febrile pattern, monitor oxygenation. I performed a history & physical examination of the patient and discussed their management with my nurse practitioner, Rebecca Jarrell. I reviewed the nurse practitioner's note and agree with the documented findings and plan of care. Lung sounds are positive for diminished breath sounds. The findings and the impression was discussed with the patient. I attest to the documentation by the nurse practitioner. Time with Patient: Less than 30
[2020-03-16] MEDS: REMDESIVIR (EUA) 100 MG in SODIUM CHLORIDE 0.9% 250 ML IVPB SCH (20:44)
[2020-03-16] MEDS: ZOLPIDEM 5 MG TAB PO PRN (20:47)
--- NOTE | 2020-03-16 23:41 | P.PN ---
Subjective Progress Note Date: 03/16/20 Principal diagnosis: Acute COVID-19 pneumonia Patient is a 59-year-old male with a known history of coronary disease with history of stent placement, hypertension, hyperlipidemia, history of [place] and no prior history of smoking presents to ER with complaints of shortness of breath and exertional dyspnea. Patient was seen in the ER yesterday with symptoms of shortness of breath and cough and subjective fevers. Patient has been having symptoms since last Saturday. Also states that he lost smell and taste. Patient states that he visited family in [place] and came back recently. Patient was tested positive for Covid 19. Patient was feeling better and was sent home. Today he presented with worsening symptoms of shortness of breath. Patient was initially placed on 100% nonrebreather with 15 L oxygen and currently titrate down to 6 L. Patient does have minimal cough. Does have subjective chills and myalgias. No headache or dizziness or lightheadedness. Chest x-ray showed correlate for pneumonia. EKG showed normal sinus rhythm Laboratory data showed WBC 11.6, hemoglobin 15.1 platelets 276 D-dimer 0.77 BUN 26 and creatinine 0.84 Ferritin 757.8, LDH 857, CRP 133 and procalcitonin 0.19 03/16/2020 Patient is currently lying in the bed comfortably. Titrate down to 2 L oxygen via nasal cannula and is saturating at 94%. Currently being continued on remdesivir day 2, Decadron and Lovenox. Pulmonary is following as well. No cough or sputum production. Patient has been afebrile. No chest pain or shortness of breath. No headache or dizziness or lightheadedness. current medications reviewed.. Objective - Vital Signs Vital signs: Vital Signs Temp 98.0 F 03/16/20 15:00 Pulse 57 L 03/16/20 15:00 Resp 18 03/16/20 15:00 BP 113/67 03/16/20 15:00 Pulse Ox 94 L 03/16/20 17:58 Intake & Output 03/16/20 03/16/20 03/17/20 06:59 18:59 06:59 Output Total 300 Balance -300 Output: Urine 300 Other: Voiding Method Urinal # Voids 2 4 - Exam PHYSICAL EXAMINATION: Patient is lying in the bed comfortably, no acute distress, awake alert and oriented.. HEENT: Normocephalic. Neck is supple. Pupils reactive. Nostrils clear. Oral cavity is moist. Ears reveal no drainage. Neck reveals no JVD, carotid bruits, or thyromegaly. CHEST EXAMINATION: Trachea is central. Symmetrical expansion. Lung sparks clear to auscultation and percussion. CARDIAC: Normal S1, S2 with no gallops. No murmurs ABDOMEN: Soft. Bowel sounds normal. No organomegaly. No abdominal bruits. Extremities: reveal no edema. No clubbing or cyanosis Neurologically awake, alert, oriented x3 with well-coordinated movements. No focal deficits noted Skin: No rash or skin lesions. Psychiatric: Coperative. Nonsuicidal Musculoskeletal: No joint swelling or deformity. Normal range of motion. - Labs CBC & Chem 7: 03/16/20 05:47 03/16/20 05:47 Labs: Abnormal Lab Results - Last 24 Hours (Table) 03/16/20 03/16/20 Range/Units 05:47 05:47 WBC 15.0 H (3.8-10.6) k/uL Neutrophils # 13.3 H (1.3-7.7) k/uL Lymphocytes # 0.9 L (1.0-4.8) k/uL BUN/Creatinine Ratio 26.00 H (12.00-20.00) Ratio Glucose 116 H (70-110) mg/dL Microbiology - Last 24 Hours (Table) 03/15/20 10:12 Blood Culture - Preliminary Blood No Growth after 24 hours Assessment and Plan Assessment: Acute COVID-19 pneumonia Acute hypoxic respiratory failure secondary to pneumonia. Elevated inflammatory markers Coronary artery disease with history of stent placement Hypertension Hyperlipidemia DVT prophylaxis currently on Lovenox Plan: Patient will be continued on oxygen at 6 L-->2L, on Decadron 6 mg daily and Lovenox 40 mg subcu twice daily. Pulmonary was consulted. Chest x-ray showed pneumonia. on remdesivir therapy. Continue with home medications and follow-up closely. Isolation with droplet and contact precautions. Time with Patient: Greater than 30
[2020-03-17] MEDS: ASPIRIN 81 MG PO SCH (07:23)
[2020-03-17] MEDS: ENOXAPARIN 40 MG/0.4 ML SYRINGE SQ SCH ×2 (07:23→20:28)
[2020-03-17] MEDS: ASCORBIC ACID 500 MG TAB PO SCH (07:23)
[2020-03-17] MEDS: ZINC SULFATE 220 MG CAP PO SCH (07:23)
[2020-03-17] MEDS: lisinopriL 20 MG TAB PO SCH (07:24)
[2020-03-17] MEDS: ATORVASTATIN 20 MG TAB PO SCH (07:24)
[2020-03-17] MEDS: FAMOTIDINE 20 MG TAB PO SCH ×2 (07:24→20:28)
[2020-03-17] MEDS: ISOSORBIDE MONONITRATE ER 30 MG TAB.ER.24H PO SCH (07:24)
[2020-03-17] MEDS: CLOPIDOGREL 75 MG TAB PO SCH (07:24)
[2020-03-17 08:07] LABS: Basophils % (A) 0 %; Eosinophils % (A) 0 %; HCT 44.1 % (39.0-53.0); HGB 14.7 gm/dL (13.0-17.5); Lymphocytes # (A) 1.1 k/uL (1.0-4.8); Lymphocytes % (A) 9 %; MCH 29.8 pg (25.0-35.0); MCHC 33.4 g/dL (31.0-37.0); Mean Platelet Volume 6.7; Monocytes # (A) 0.8 k/uL (0-1.0); Monocytes % (A) 7 %; Neutrophils # (A) 10.4 k/uL (1.3-7.7); Neutrophils % (A) 83 %; Platelet Count 344 k/uL (150-450); RBC 4.95 m/uL (4.30-5.90); WBC 12.5 k/uL (3.8-10.6)
[2020-03-17 08:14] LABS: D-Dimer 0.55 mg/L FEU (<0.60)
[2020-03-17] MEDS: dexAMETHasone 2 MG TAB PO SCH (09:04)
[2020-03-17 13:38] LABS: African American GFR (CKD) 107.2 (60.0-200.0); Albumin/Globulin Ratio 1.67 (1.60-3.17); Anion Gap 12.1 mmol/L (4.00-12.00); BUN/Creat Ratio 31.11 Ratio (12.00-20.00); Carbon Dioxide 26.9 mmol/L (21.6-31.8); Ferritin 705.2 ng/mL (22.0-322.0); Globulin 2.4 g/dL (1.6-3.3); Non-African American GFR(CKD) 92.5 (60.0-200.0); Potassium 4.8 mmol/L (3.5-5.5); Total Bilirubin 0.7 mg/dL (0.3-1.2); Total Protein 6.4 g/dL (6.2-8.2)
--- NOTE | 2020-03-17 16:28 | P.PN ---
Subjective Progress Note Date: 03/17/20 Principal diagnosis: COVID19 pneumonitis 59-year-old male patient coming in for an acute Covid 19 related pneumonia. The patient is known to have coronary artery disease and previous coronary stenting. The patient is also known to have hypertension and hyperlipidemia. He pres ented to the ED with shortness of breath. He was apparently in the emergency department 24 hours ago and he was released home as the patient was quite stable. His condition got worse and for that reason he came into the hospital because of worsening shortness of breath. Upon arrival to the ED, the patient was brought in with a nonrebreather facemask. He denied having any chest pain. Denied having any fever. He had a white cell count of 11.6 and hemoglobin of 15.2. D-dimer was at 0.77. The rest of the correlation profile was within normal limits. Renal function was stable. Electrodes were stable. Ferritin level was 757. LDH level was a 757. C-reactive protein was 133 and a troponin was negative. The pro-calcitonin was 0.19. The chest x-ray showed patchy bilateral airspace disease consistent with pneumonia. The patient had no evidence of any pneumothorax. The right hemidiaphragm was elevated. On 03/16/2020 patient seen in follow-up on medical surgical floor, he is on 2 L of oxygen pulse ox 94%, today is his second day of Remdesivir, he is on oral Decadron, she is feeling better today, he is on oral Pepcid, and Lovenox for anticoagulation. No acute events overnight. No cough. No chest pain. On 03/17/2020 patient seen in follow-up on medical surgical floor. He reports feeling better today, breathing easier, he is on 2 L of oxygen pulse ox is 91- 93%, sensitive stable, his been afebrile. He is on day 3 of Remdesivir, he is on oral steroids in the form of Decadron, Pepcid, and Lovenox for anticoagulation, no nausea vomiting or diarrhea, no chest discomfort, no palpitations, today's labs have been reviewed, showing with blood cell count of 12.5, hemoglobin is 14.7, fibrinogen is 582, electrolytes within normal limits, BUN of 28 and creatinine 0.9. Ferritin level is 705, LDH is improving, and is down to 370, CRP is down significantly to 14 from 133. Pro-calcitonin slightly improved down to 0.17, from 0.19 Objective - Vital Signs Vital signs: Vital Signs Temp 98.3 F 03/17/20 14:29 Pulse 66 03/17/20 14:29 Resp 17 03/17/20 14:29 BP 115/64 03/17/20 14:29 Pulse Ox 93 L 03/17/20 14:29 Intake & Output 03/16/20 03/17/20 03/17/20 18:59 06:59 18:59 Intake Total 100 Output Total 250 Balance -150 Intake: Oral 100 Output: Urine 250 Other: Voiding Method Urinal # Voids 4 3 - Exam GENERAL EXAM: Alert, very pleasant, 59-year-old white male, on 2 L of oxygen and pulse ox 94% comfortable in no apparent distress. HEAD: Normocephalic/atraumatic. EYES: Normal reaction of pupils, equal size. Conjunctiva pink, sclera white. NOSE: Clear with pink turbinates. THROAT: No erythema or exudates. NECK: No masses, no JVD, no thyroid enlargement, no adenopathy. CHEST: No chest wall deformity. Symmetrical expansion. LUNGS: Equal air entry with no crackles, wheeze, rhonchi or dullness. CVS: Regular rate and rhythm, normal S1 and S2, no gallops, no murmurs, no rubs ABDOMEN: Soft, nontender. No hepatosplenomegaly, normal bowel sounds, no guarding or rigidity. EXTREMITIES: No clubbing, no edema, no cyanosis, 2+ pulses and upper and lower extremities. MUSCULOSKELETAL: Muscle strength and tone normal. SPINE: No scoliosis or deformity SKIN: No rashes CENTRAL NERVOUS SYSTEM: Alert and oriented -3. No focal deficits, tone is normal in all 4 extremities. PSYCHIATRIC: Alert and oriented -3. Appropriate affect. Intact judgment and insight. - Labs CBC & Chem 7: 03/17/20 07:00 03/17/20 07:00 Labs: Abnormal Lab Results - Last 24 Hours (Table) 03/16/20 03/17/20 03/17/20 Range/Units 05:47 07:00 07:00 WBC 12.5 H (3.8-10.6) k/uL Neutrophils # 10.4 H (1.3-7.7) k/uL Fibrinogen 582 H (200-500) mg/dL Anion Gap (4.00-12.00) mmol/L BUN (9.0-27.0) mg/dL BUN/Creatinine Ratio (12.00-20.00) Ratio Ferritin (22.0-322.0) ng/mL AST (14-35) U/L Lactate Dehydrogenase (120-246) U/L C-Reactive Protein (0.0-0.8) mg/dL Procalcitonin 0.17 H (0.02-0.09) ng/mL 03/17/20 Range/Units 07:00 WBC (3.8-10.6) k/uL Neutrophils # (1.3-7.7) k/uL Fibrinogen (200-500) mg/dL Anion Gap 12.10 H (4.00-12.00) mmol/L BUN 28.0 H (9.0-27.0) mg/dL BUN/Creatinine Ratio 31.11 H (12.00-20.00) Ratio Ferritin 705.2 H (22.0-322.0) ng/mL AST 48 H (14-35) U/L Lactate Dehydrogenase 370 H (120-246) U/L C-Reactive Protein 14.0 H (0.0-0.8) mg/dL Procalcitonin (0.02-0.09) ng/mL Microbiology - Last 24 Hours (Table) 03/15/20 10:12 Blood Culture - Preliminary Blood No Growth after 48 hours Assessment and Plan Plan: Assessment: 1 acute Covid 19 pneumonia. The patient presenting to the hospital because of worsening shortness of breath and hypoxemia in addition to bilateral patchy airspace disease/infiltrates consistent with pneumonia 2 acute hypoxic respiratory failure secondary to above 3 leukocytosis, likely reactive 4 elevated inflammatory markers secondary to Covid 19 related infection 5 coronary artery disease with previous coronary intervention and stenting 6 hyperlipidemia 7 hypertension 8 history of nephrolithiasis/kidney stones Plan Continue current medical treatment, continue oral Decadron, Remdesivir, prophylactivc dose Lovenox, patient is feeling better, vital signs have been stable, wean FiO2, continue to follow, if continues to improve may consider discharge home in the next 24 hours, follow-up chest x-ray in the morning I performed a history & physical examination of the patient and discussed their management with my nurse practitioner, Rebecca Jarrell. I reviewed the nurse practitioner's note and agree with the documented findings and plan of care. Lung sounds are positive for diminished breath sounds. The findings and the impression was discussed with the patient. I attest to the documentation by the nurse practitioner. Time with Patient: Less than 30
[2020-03-17] MEDS: REMDESIVIR (EUA) 100 MG in SODIUM CHLORIDE 0.9% 250 ML IVPB SCH (20:28)
[2020-03-17] MEDS ORDERED: GABAPENTIN 400 MG CAP PO STA (20:45)
[2020-03-17] MEDS: ZOLPIDEM 5 MG TAB PO PRN (23:07)
[2020-03-18 07:08] LABS: Basophils % (A) 0 %; Eosinophils % (A) 0 %; HCT 43.6 % (39.0-53.0); HGB 14.6 gm/dL (13.0-17.5); Lymphocytes % (A) 8 %; MCH 29.5 pg (25.0-35.0); MCHC 33.5 g/dL (31.0-37.0); Mean Platelet Volume 6.8; Monocytes # (A) 0.8 k/uL (0-1.0); Monocytes % (A) 6 %; Neutrophils # (A) 10.6 k/uL (1.3-7.7); Neutrophils % (A) 84 %; Platelet Count 388 k/uL (150-450); RBC 4.95 m/uL (4.30-5.90); WBC 12.6 k/uL (3.8-10.6)
[2020-03-18] MEDS: ZINC SULFATE 220 MG CAP PO SCH (07:12)
[2020-03-18] MEDS: ASCORBIC ACID 500 MG TAB PO SCH (07:12)
[2020-03-18] MEDS: CLOPIDOGREL 75 MG TAB PO SCH (07:12)
[2020-03-18] MEDS: ASPIRIN 81 MG PO SCH (07:12)
[2020-03-18] MEDS: dexAMETHasone 2 MG TAB PO SCH (07:12)
[2020-03-18] MEDS: FAMOTIDINE 20 MG TAB PO SCH ×2 (07:13→21:09)
[2020-03-18] MEDS: ENOXAPARIN 40 MG/0.4 ML SYRINGE SQ SCH ×2 (07:13→21:09)
[2020-03-18] MEDS: ATORVASTATIN 20 MG TAB PO SCH (07:13)
[2020-03-18] MEDS: lisinopriL 20 MG TAB PO SCH (07:13)
[2020-03-18] MEDS: ISOSORBIDE MONONITRATE ER 30 MG TAB.ER.24H PO SCH (07:13)
[2020-03-18 07:27] LABS: D-Dimer 0.65 mg/L FEU (<0.60)
[2020-03-18] MEDS: ALPRAZolam 0.25 MG TAB PO PRN ×2 (09:14→21:09)
--- NOTE | 2020-03-18 10:37 | P.PN ---
Subjective Progress Note Date: 03/17/20 Principal diagnosis: Acute COVID-19 pneumonia Patient is a 59-year-old male with a known history of coronary disease with history of stent placement, hypertension, hyperlipidemia, history of [place] and no prior history of smoking presents to ER with complaints of shortness of breath and exertional dyspnea. Patient was seen in the ER yesterday with symptoms of shortness of breath and cough and subjective fevers. Patient has been having symptoms since last Saturday. Also states that he lost smell and taste. Patient states that he visited family in [place] and came back recently. Patient was tested positive for Covid 19. Patient was feeling better and was sent home. Today he presented with worsening symptoms of shortness of breath. Patient was initially placed on 100% nonrebreather with 15 L oxygen and currently titrate down to 6 L. Patient does have minimal cough. Does have subjective chills and myalgias. No headache or dizziness or lightheadedness. Chest x-ray showed correlate for pneumonia. EKG showed normal sinus rhythm Laboratory data showed WBC 11.6, hemoglobin 15.1 platelets 276 D-dimer 0.77 BUN 26 and creatinine 0.84 Ferritin 757.8, LDH 857, CRP 133 and procalcitonin 0.19 03/16/2020 Patient is currently lying in the bed comfortably. Titrate down to 2 L oxygen via nasal cannula and is saturating at 94%. Currently being continued on remd esivir day 2, Decadron and Lovenox. Pulmonary is following as well. No cough or sputum production. Patient has been afebrile. No chest pain or shortness of breath. No headache or dizziness or lightheadedness. 03/17/2020 Patient is currently lying in the bed comfortably. Still requiring oxygen 2 L with another cannula and saturating at 91-92%. Patient is being continued on Decadron, Lovenox and Remdesivir. No complaints of nausea vomiting. Patient has been afebrile. Next and laboratory data showed WBC 12.5, hemoglobin 14.7 and platelets 344 BUN 2018 creatinine 0.9. Ferritin 705, LDH 370, C-reactive getting trending down to 14 today current medications reviewed.. Objective - Vital Signs Vital signs: Vital Signs Temp 98.3 F 03/17/20 14:29 Pulse 66 03/17/20 14:29 Resp 16 03/17/20 16:26 BP 115/64 03/17/20 14:29 Pulse Ox 93 L 03/17/20 14:29 Intake & Output 03/16/20 03/17/20 03/17/20 18:59 06:59 18:59 Intake Total 100 Output Total 250 Balance -150 Intake: Oral 100 Output: Urine 250 Other: Voiding Method Urinal # Voids 4 3 - Exam PHYSICAL EXAMINATION: Patient is lying in the bed comfortably, no acute distress, awake alert and oriented.. HEENT: Normocephalic. Neck is supple. Pupils reactive. Nostrils clear. Oral cavity is moist. Ears reveal no drainage. Neck reveals no JVD, carotid bruits, or thyromegaly. CHEST EXAMINATION: Trachea is central. Symmetrical expansion. Lung sparks clear to auscultation and percussion. CARDIAC: Normal S1, S2 with no gallops. No murmurs ABDOMEN: Soft. Bowel sounds normal. No organomegaly. No abdominal bruits. Extremities: reveal no edema. No clubbing or cyanosis Neurologically awake, alert, oriented x3 with well-coordinated movements. No focal deficits noted Skin: No rash or skin lesions. Psychiatric: Coperative. Nonsuicidal Musculoskeletal: No joint swelling or deformity. Normal range of motion. - Labs CBC & Chem 7: 03/18/20 05:43 03/17/20 07:00 Labs: Abnormal Lab Results - Last 24 Hours (Table) 03/16/20 03/17/20 03/17/20 Range/Units 05:47 07:00 07:00 WBC 12.5 H (3.8-10.6) k/uL Neutrophils # 10.4 H (1.3-7.7) k/uL Fibrinogen 582 H (200-500) mg/dL Anion Gap (4.00-12.00) mmol/L BUN (9.0-27.0) mg/dL BUN/Creatinine Ratio (12.00-20.00) Ratio Ferritin (22.0-322.0) ng/mL AST (14-35) U/L Lactate Dehydrogenase (120-246) U/L C-Reactive Protein (0.0-0.8) mg/dL Procalcitonin 0.17 H (0.02-0.09) ng/mL 11/19/20 Range/Units 07:00 WBC (3.8-10.6) k/uL Neutrophils # (1.3-7.7) k/uL Fibrinogen (200-500) mg/dL Anion Gap 12.10 H (4.00-12.00) mmol/L BUN 28.0 H (9.0-27.0) mg/dL BUN/Creatinine Ratio 31.11 H (12.00-20.00) Ratio Ferritin 705.2 H (22.0-322.0) ng/mL AST 48 H (14-35) U/L Lactate Dehydrogenase 370 H (120-246) U/L C-Reactive Protein 14.0 H (0.0-0.8) mg/dL Procalcitonin (0.02-0.09) ng/mL Microbiology - Last 24 Hours (Table) 03/15/20 10:12 Blood Culture - Preliminary Blood No Growth after 48 hours Assessment and Plan Assessment: Acute COVID-19 pneumonia Acute hypoxic respiratory failure secondary to pneumonia. Elevated inflammatory markers Coronary artery disease with history of stent placement Hypertension Hyperlipidemia DVT prophylaxis currently on Lovenox Plan: Patient will be continued on oxygen at 6 L-->2L, on Decadron 6 mg daily and Lovenox 40 mg subcu twice daily. Pulmonary is following. Chest x-ray showed pneumonia. on remdesivir therapy. Continue with home medications and follow-up closely. Isolation with droplet and contact precautions. Time with Patient: Greater than 30
[2020-03-18 12:17] LABS: African American GFR (CKD) 112.5 (60.0-200.0); Albumin 3.8 g/dL (3.80-4.90); Albumin/Globulin Ratio 1.65 (1.60-3.17); Anion Gap 7.3 mmol/L (4.00-12.00); C Reactive Protein 13.5 mg/dL (0.0-0.8); Calcium 8.9 mg/dL (8.7-10.3); Carbon Dioxide 30.7 mmol/L (21.6-31.8); Ferritin 679.1 ng/mL (22.0-322.0); Globulin 2.3 g/dL (1.6-3.3); Non-African American GFR(CKD) 97.1 (60.0-200.0); Potassium 4.9 mmol/L (3.5-5.5); Total Bilirubin 0.6 mg/dL (0.2-1.2); Total Protein 6.1 g/dL (6.2-8.2)
--- NOTE | 2020-03-18 12:37 | XR ---
EXAMINATION TYPE: XR chest 1V portable DATE OF EXAM: 03/18/2020 HISTORY: Shortness of breath. COMPARISON: 03/15/2020 TECHNIQUE: Single view of the chest is submitted. FINDINGS: Demonstrated are scattered senescent parenchymal change. Interstitial infiltrate right midlung zone and left medial lung base noted. Improving aeration left m idlung. The heart is stable. Hilar and mediastinal structures are within normal limits. Degenerative changes are seen of the dorsal spine. IMPRESSION: 1. Interstitial infiltrate right midlung zone and left medial lung base noted. Improving aeration le ft midlung.
--- NOTE | 2020-03-18 16:56 | P.PN ---
Subjective Progress Note Date: 03/18/20 Principal diagnosis: CoVID 19 pneumonitis 59-year-old male patient coming in for an acute Covid 19 related pneumonia. The patient is known to have coronary artery disease and previous coronary stenting. The patient is also known to have hypertension and hyperlipidemia. He pre sented to the ED with shortness of breath. He was apparently in the emergency department 24 hours ago and he was released home as the patient was quite stable. His condition got worse and for that reason he came into the hospital because of worsening shortness of breath. Upon arrival to the ED, the patient was brought in with a nonrebreather facemask. He denied having any chest pain. Denied having any fever. He had a white cell count of 11.6 and hemoglobin of 15.2. D-dimer was at 0.77. The rest of the correlation profile was within normal limits. Renal function was stable. Electrodes were stable. Ferritin level was 757. LDH level was a 757. C-reactive protein was 133 and a troponin was negative. The pro-calcitonin was 0.19. The chest x-ray showed patchy bilateral airspace disease consistent with pneumonia. The patient had no evidence of any pneumothorax. The right hemidiaphragm was elevated. On 03/16/2020 patient seen in follow-up on medical surgical floor, he is on 2 L of oxygen pulse ox 94%, today is his second day of Remdesivir, he is on oral Decadron, she is feeling better today, he is on oral Pepcid, and Lovenox for anticoagulation. No acute events overnight. No cough. No chest pain. On 03/17/2020 patient seen in follow-up on medical surgical floor. He reports feeling better today, breathing easier, he is on 2 L of oxygen pulse ox is 91- 93%, sensitive stable, his been afebrile. He is on day 3 of Remdesivir, he is on oral steroids in the form of Decadron, Pepcid, and Lovenox for anticoagulation, no nausea vomiting or diarrhea, no chest discomfort, no palpitations, today's labs have been reviewed, showing with blood cell count of 12.5, hemoglobin is 14.7, fibrinogen is 582, electrolytes within normal limits, BUN of 28 and creatinine 0.9. Ferritin level is 705, LDH is improving, and is down to 370, CRP is down significantly to 14 from 133. Pro-calcitonin slightly improved down to 0.17, from 0.19 The patient is seen today 03/18/2020 in follow-up on the regular medical floor. He is currently sitting up in bed. Awake and alert in no acute distress. Breathing a bit easier today compared to yesterday. Maintaining good O2 saturation in the 90s on 2 L/m per nasal cannula. Afebrile. Blood cultures reveal no growth. White count 12.6. Hemoglobin 14.6. Lymphocytes 1.0. D- dimer 0.65. Fibrinogen 583. Sodium 142. Potassium 4.9. Ferritin 679. LDH 380. Today is day #4 of Remdesivir. He remains on oral steroids in the form of Decadron, Pepcid, and Lovenox for anticoagulation. Objective - Vital Signs Vital signs: Vital Signs Temp 98.0 F 03/18/20 14:00 Pulse 70 03/18/20 14:00 Resp 18 03/18/20 05:27 BP 114/68 03/18/20 14:00 Pulse Ox 94 L 03/18/20 14:00 Intake & Output 03/17/20 03/18/20 03/18/20 18:59 06:59 18:59 Intake Total 100 690 240 Output Total 250 Balance -150 690 240 Intake: Intake, IV Titration 250 Amount Remdesivir (Eua) 100 mg 250 In Sodium Chloride 0.9% 250 ml @ 250 mls/hr IVPB Q24H [facility] Rx#:[id number] Oral 100 440 240 Output: Urine 250 Other: Voiding Method Urinal # Voids 1 3 - Exam GENERAL EXAM: Alert, very pleasant, 59-year-old white male, on 2 L of oxygen and pulse ox 90% comfortable in no apparent distress. HEAD: Normocephalic/atraumatic. EYES: Normal reaction of pupils, equal size. Conjunctiva pink, sclera white. NOSE: Clear with pink turbinates. THROAT: No erythema or exudates. NECK: No masses, no JVD, no thyroid enlargement, no adenopathy. CHEST: No chest wall deformity. Symmetrical expansion. LUNGS: Equal air entry with bilateral scattered rhonchi. CVS: Regular rate and rhythm, normal S1 and S2, no gallops, no murmurs, no rubs ABDOMEN: Soft, nontender. No hepatosplenomegaly, normal bowel sounds, no guarding or rigidity. EXTREMITIES: No clubbing, no edema, no cyanosis, 2+ pulses and upper and lower extremities. MUSCULOSKELETAL: Muscle strength and tone normal. SPINE: No scoliosis or deformity SKIN: No rashes CENTRAL NERVOUS SYSTEM: Alert and oriented -3. No focal deficits, tone is normal in all 4 extremities. PSYCHIATRIC: Alert and oriented -3. Appropriate affect. Intact judgment and insight. - Labs CBC & Chem 7: 03/18/20 05:43 03/18/20 05:43 Labs: Abnormal Lab Results - Last 24 Hours (Table) 03/18/20 03/18/20 03/18/20 Range/Units 05:43 05:43 05:43 WBC 12.6 H (3.8-10.6) k/uL Neutrophils # 10.6 H (1.3-7.7) k/uL Fibrinogen 583 H (200-500) mg/dL D-Dimer 0.65 H (<0.60) mg/L FEU BUN 28.0 H (9.0-27.0) mg/dL BUN/Creatinine Ratio 35.00 H (12.00-20.00) Ratio Ferritin 679.1 H (22.0-322.0) ng/mL AST 57 H (14-35) U/L ALT 64 H (10-49) U/L Lactate Dehydrogenase 380 H (120-246) U/L C-Reactive Protein 13.5 H (0.0-0.8) mg/dL Total Protein 6.1 L (6.2-8.2) g/dL Microbiology - Last 24 Hours (Table) 03/15/20 10:12 Blood Culture - Preliminary Blood No Growth after 72 hours Assessment and Plan Assessment: 1 acute Covid 19 pneumonia. The patient presenting to the hospital because of worsening shortness of breath and hypoxemia in addition to bilateral patchy airspace disease/infiltrates consistent with pneumonia 2 acute hypoxic respiratory failure secondary to above 3 leukocytosis, likely reactive 4 elevated inflammatory markers secondary to Covid 19 related infection 5 coronary artery disease with previous coronary intervention and stenting 6 hyperlipidemia 7 hypertension 8 history of nephrolithiasis/kidney stones Plan The patient was seen and evaluated by Dr. Longo This is day #4 of Remdesivir Continue current treatment plan Titrate down the FiO2 as tolerated We'll continue to follow I, the cosigning physician, performed a history & physical examination of the patient. Lungs sounds few scattered rhonchi. Maintaining good O2 saturations in the 90s on 2 L/m per nasal cannula. I discussed the assessment and plan of care with my nurse practitioner, Fidelia Gandhi. I attest to the above note as dictated by her.
[2020-03-18] MEDS: REMDESIVIR (EUA) 100 MG in SODIUM CHLORIDE 0.9% 250 ML IVPB SCH (21:09)
[2020-03-19 06:29] LABS: Basophils # (A) 0.1 k/uL (0-0.2); Basophils % (A) 1 %; Eosinophils % (A) 0 %; HCT 41.6 % (39.0-53.0); HGB 14.2 gm/dL (13.0-17.5); Lymphocytes # (A) 1.4 k/uL (1.0-4.8); Lymphocytes % (A) 10 %; MCH 29.8 pg (25.0-35.0); MCHC 34.2 g/dL (31.0-37.0); MCV 87.3 fL (80.0-100.0); Mean Platelet Volume 6.7; Monocytes # (A) 0.9 k/uL (0-1.0); Monocytes % (A) 7 %; Neutrophils # (A) 11.2 k/uL (1.3-7.7); Neutrophils % (A) 81 %; Platelet Count 436 k/uL (150-450); RBC 4.76 m/uL (4.30-5.90); WBC 13.8 k/uL (3.8-10.6)
[2020-03-19 06:39] LABS: D-Dimer 0.79 mg/L FEU (<0.60)
[2020-03-19] MEDS: lisinopriL 20 MG TAB PO SCH (08:47)
[2020-03-19] MEDS: CLOPIDOGREL 75 MG TAB PO SCH (08:47)
[2020-03-19] MEDS: ENOXAPARIN 40 MG/0.4 ML SYRINGE SQ SCH ×2 (08:47→21:00)
[2020-03-19] MEDS: ZINC SULFATE 220 MG CAP PO SCH (08:47)
[2020-03-19] MEDS: dexAMETHasone 2 MG TAB PO SCH (08:47)
[2020-03-19] MEDS: ASCORBIC ACID 500 MG TAB PO SCH (08:47)
[2020-03-19] MEDS: ASPIRIN 81 MG PO SCH (08:47)
[2020-03-19] MEDS: ATORVASTATIN 20 MG TAB PO SCH (08:47)
[2020-03-19] MEDS: ISOSORBIDE MONONITRATE ER 30 MG TAB.ER.24H PO SCH (08:47)
[2020-03-19] MEDS: FAMOTIDINE 20 MG TAB PO SCH ×2 (08:48→21:00)
[2020-03-19] MEDS: ALPRAZolam 0.25 MG TAB PO PRN ×2 (09:01→21:01)
[2020-03-19 13:21] LABS: African American GFR (CKD) 107.2 (60.0-200.0); Albumin 3.6 g/dL (3.80-4.90); Albumin/Globulin Ratio 1.64 (1.60-3.17); Anion Gap 8.4 mmol/L (4.00-12.00); BUN/Creat Ratio 34.44 Ratio (12.00-20.00); C Reactive Protein 11.6 mg/dL (0.0-0.8); Calcium 8.6 mg/dL (8.7-10.3); Carbon Dioxide 29.6 mmol/L (21.6-31.8); Ferritin 562.5 ng/mL (22.0-322.0); Globulin 2.2 g/dL (1.6-3.3); Non-African American GFR(CKD) 92.5 (60.0-200.0); Potassium 4.6 mmol/L (3.5-5.5); Total Bilirubin 0.6 mg/dL (0.3-1.2); Total Protein 5.8 g/dL (6.2-8.2)
[2020-03-19] MEDS: GABAPENTIN 400 MG CAP PO SCH ×2 (14:43→21:07)
--- NOTE | 2020-03-19 16:40 | P.PN ---
Subjective Progress Note Date: 03/19/20 Principal diagnosis: CoVID 19 pneumonitis 59-year-old male patient coming in for an acute Covid 19 related pneumonia. The patient is known to have coronary artery disease and previous coronary stenting. The patient is also known to have hypertension and hyperlipidemia. He pre sented to the ED with shortness of breath. He was apparently in the emergency department 24 hours ago and he was released home as the patient was quite stable. His condition got worse and for that reason he came into the hospital because of worsening shortness of breath. Upon arrival to the ED, the patient was brought in with a nonrebreather facemask. He denied having any chest pain. Denied having any fever. He had a white cell count of 11.6 and hemoglobin of 15.2. D-dimer was at 0.77. The rest of the correlation profile was within normal limits. Renal function was stable. Electrodes were stable. Ferritin level was 757. LDH level was a 757. C-reactive protein was 133 and a troponin was negative. The pro-calcitonin was 0.19. The chest x-ray showed patchy bilateral airspace disease consistent with pneumonia. The patient had no evidence of any pneumothorax. The right hemidiaphragm was elevated. On 03/16/2020 patient seen in follow-up on medical surgical floor, he is on 2 L of oxygen pulse ox 94%, today is his second day of Remdesivir, he is on oral Decadron, she is feeling better today, he is on oral Pepcid, and Lovenox for anticoagulation. No acute events overnight. No cough. No chest pain. On 03/17/2020 patient seen in follow-up on medical surgical floor. He reports feeling better today, breathing easier, he is on 2 L of oxygen pulse ox is 91- 93%, sensitive stable, his been afebrile. He is on day 3 of Remdesivir, he is on oral steroids in the form of Decadron, Pepcid, and Lovenox for anticoagulation, no nausea vomiting or diarrhea, no chest discomfort, no palpitations, today's labs have been reviewed, showing with blood cell count of 12.5, hemoglobin is 14.7, fibrinogen is 582, electrolytes within normal limits, BUN of 28 and creatinine 0.9. Ferritin level is 705, LDH is improving, and is down to 370, CRP is down significantly to 14 from 133. Pro-calcitonin slightly improved down to 0.17, from 0.19 The patient is seen today 03/18/2020 in follow-up on the regular medical floor. He is currently sitting up in bed. Awake and alert in no acute distress. Breathing a bit easier today compared to yesterday. Maintaining good O2 saturation in the 90s on 2 L/m per nasal cannula. Afebrile. Blood cultures reveal no growth. White count 12.6. Hemoglobin 14.6. Lymphocytes 1.0. D- dimer 0.65. Fibrinogen 583. Sodium 142. Potassium 4.9. Ferritin 679. LDH 380. Today is day #4 of Remdesivir. He remains on oral steroids in the form of Decadron, Pepcid, and Lovenox for anticoagulation. The patient is seen today 03/19/2020 in follow-up on the regular medical floor. He is currently resting comfortably in bed. Awake and alert in no distress. 18 O2 saturation low 90s on 3 L/m per nasal cannula. He is afebrile. Hemodynamically stable. White count 13.8. Hemoglobin 14.2. Lymphocytes 1.4. D-dimer 0.79. Sodium 142. Potassium 4.6. Creatinine 0.9. Ferritin 562. LDH 391. C-reactive protein 11.6. He is on Day #5 of Remdesivir. Continued on dexamethasone, Lovenox, zinc, vitamin C, Pepcid and zinc. Objective - Vital Signs Vital signs: Vital Signs Temp 97.7 F 03/19/20 14:35 Pulse 75 03/19/20 14:35 Resp 20 03/19/20 14:35 BP 120/71 03/19/20 14:35 Pulse Ox 91 L 03/19/20 16:01 Intake & Output 03/18/20 03/19/20 03/19/20 18:59 06:59 18:59 Intake Total 240 Balance 240 Intake: Oral 240 Other: # Voids 3 2 3 - Exam GENERAL EXAM: Alert, very pleasant, 59-year-old white male, on 3 L of oxygen and pulse ox 91% comfortable in no apparent distress. HEAD: Normocephalic/atraumatic. EYES: Normal reaction of pupils, equal size. Conjunctiva pink, sclera white. NOSE: Clear with pink turbinates. THROAT: No erythema or exudates. NECK: No masses, no JVD, no thyroid enlargement, no adenopathy. CHEST: No chest wall deformity. Symmetrical expansion. LUNGS: Equal air entry with bilateral scattered rhonchi. CVS: Regular rate and rhythm, normal S1 and S2, no gallops, no murmurs, no rubs ABDOMEN: Soft, nontender. No hepatosplenomegaly, normal bowel sounds, no guarding or rigidity. EXTREMITIES: No clubbing, no edema, no cyanosis, 2+ pulses and upper and lower extremities. MUSCULOSKELETAL: Muscle strength and tone normal. SPINE: No scoliosis or deformity SKIN: No rashes CENTRAL NERVOUS SYSTEM: Alert and oriented -3. No focal deficits, tone is normal in all 4 extremities. PSYCHIATRIC: Alert and oriented -3. Appropriate affect. Intact judgment and insight. - Labs CBC & Chem 7: 03/19/20 05:29 03/19/20 05:29 Labs: Abnormal Lab Results - Last 24 Hours (Table) 03/19/20 03/19/20 03/19/20 Range/Units 05:29 05:29 05:29 WBC 13.8 H (3.8-10.6) k/uL Neutrophils # 11.2 H (1.3-7.7) k/uL Fibrinogen 583 H (200-500) mg/dL D-Dimer 0.79 H (<0.60) mg/L FEU BUN 31.0 H (9.0-27.0) mg/dL BUN/Creatinine Ratio 34.44 H (12.00-20.00) Ratio Calcium 8.6 L (8.7-10.3) mg/dL Ferritin 562.5 H (22.0-322.0) ng/mL AST 70 H (14-35) U/L ALT 86 H (10-49) U/L Lactate Dehydrogenase 391 H (120-246) U/L C-Reactive Protein 11.6 H (0.0-0.8) mg/dL Total Protein 5.8 L (6.2-8.2) g/dL Albumin 3.60 L (3.80-4.90) g/dL Microbiology - Last 24 Hours (Table) 03/15/20 10:12 Blood Culture - Preliminary Blood No Growth after 96 hours Assessment and Plan Assessment: 1 acute Covid 19 pneumonia. The patient presenting to the hospital because of worsening shortness of breath and hypoxemia in addition to bilateral patchy airspace disease/infiltrates consistent with pneumonia 2 acute hypoxic respiratory failure secondary to above 3 leukocytosis, likely reactive 4 elevated inflammatory markers secondary to Covid 19 related infection 5 coronary artery disease with previous coronary intervention and stenting 6 hyperlipidemia 7 hypertension 8 history of nephrolithiasis/kidney stones Plan The patient was seen and evaluated by Dr. Longo This is day #5 of Remdesivir Continue current treatment plan Titrate down the FiO2 as tolerated We'll continue to follow I, the cosigning physician, performed a history & physical examination of the patient. Lungs sounds few scattered rhonchi. Maintaining good O2 saturations in the 90s on 3 L/m per nasal cannula. I discussed the assessment and plan of care with my nurse practitioner, Fidelia Gandhi. I attest to the above note as dictated by her.
[2020-03-19] MEDS: REMDESIVIR (EUA) 100 MG in SODIUM CHLORIDE 0.9% 250 ML IVPB SCH (21:01)
[2020-03-20] MEDS: ASCORBIC ACID 500 MG TAB PO SCH (08:25)
[2020-03-20] MEDS: GABAPENTIN 400 MG CAP PO SCH ×2 (08:25→20:30)
[2020-03-20] MEDS: CLOPIDOGREL 75 MG TAB PO SCH (08:25)
[2020-03-20] MEDS: ASPIRIN 81 MG PO SCH (08:25)
[2020-03-20] MEDS: lisinopriL 20 MG TAB PO SCH (08:25)
[2020-03-20] MEDS: ENOXAPARIN 40 MG/0.4 ML SYRINGE SQ SCH ×2 (08:25→20:30)
[2020-03-20] MEDS: ISOSORBIDE MONONITRATE ER 30 MG TAB.ER.24H PO SCH (08:25)
[2020-03-20] MEDS: ZINC SULFATE 220 MG CAP PO SCH (08:25)
[2020-03-20] MEDS: ATORVASTATIN 20 MG TAB PO SCH (08:25)
[2020-03-20] MEDS: dexAMETHasone 2 MG TAB PO SCH (08:25)
[2020-03-20] MEDS: FAMOTIDINE 20 MG TAB PO SCH ×2 (08:25→20:30)
[2020-03-20] MEDS: ALPRAZolam 0.25 MG TAB PO PRN ×2 (08:26→20:32)
--- NOTE | 2020-03-20 11:03 | P.PN ---
Subjective Progress Note Date: 03/18/20 Principal diagnosis: Acute COVID-19 pneumonia Patient is a 59-year-old male with a known history of coronary disease with history of stent placement, hypertension, hyperlipidemia, history of [place] and no prior history of smoking presents to ER with complaints of shortness of breath and exertional dyspnea. Patient was seen in the ER yesterday with symptoms of shortness of breath and cough and subjective fevers. Patient has been having symptoms since last Saturday. Also states that he lost smell and taste. Patient states that he visited family in [place] and came back recently. Patient was tested positive for Covid 19. Patient was feeling better and was sent home. Today he presented with worsening symptoms of shortness of breath. Patient was initially placed on 100% nonrebreather with 15 L oxygen and currently titrate down to 6 L. Patient does have minimal cough. Does have subjective chills and myalgias. No headache or dizziness or lightheadedness. Chest x-ray showed correlate for pneumonia. EKG showed normal sinus rhythm Laboratory data showed WBC 11.6, hemoglobin 15.1 platelets 276 D-dimer 0.77 BUN 26 and creatinine 0.84 Ferritin 757.8, LDH 857, CRP 133 and procalcitonin 0.19 03/16/2020 Patient is currently lying in the bed comfortably. Titrate down to 2 L oxygen via nasal cannula and is saturating at 94%. Currently being continued on remd esivir day 2, Decadron and Lovenox. Pulmonary is following as well. No cough or sputum production. Patient has been afebrile. No chest pain or shortness of breath. No headache or dizziness or lightheadedness. 03/17/2020 Patient is currently lying in the bed comfortably. Still requiring oxygen 2 L with another cannula and saturating at 91-92%. Patient is being continued on Decadron, Lovenox and Remdesivir. No complaints of nausea vomiting. Patient has been afebrile. Next and laboratory data showed WBC 12.5, hemoglobin 14.7 and platelets 344 BUN 2018 creatinine 0.9. Ferritin 705, LDH 370, C-reactive getting trending down to 14 today 03/18/2017 Patient is currently lying in the bed comfortably. Denied any complaints of worsening shortness of breath or chest pain. Patient is still requiring oxygen at 2 L by nasal cannula and saturating just about 90. Cultures have been negative. Patient is being continued on telemetry as well. Patient is also on Decadron, Lovenox and vitamin supplementation Pepcid. Patient has been afebrile otherwise. current medications reviewed. Objective - Vital Signs Vital signs: Vital Signs Temp 98.0 F 03/18/20 14:00 Pulse 70 03/18/20 14:00 Resp 18 03/18/20 05:27 BP 114/68 03/18/20 14:00 Pulse Ox 94 L 03/18/20 14:00 Intake & Output 03/17/20 03/18/20 03/18/20 18:59 06:59 18:59 Intake Total 100 690 240 Output Total 250 Balance -150 690 240 Intake: Intake, IV Titration 250 Amount Remdesivir (Eua) 100 mg 250 In Sodium Chloride 0.9% 250 ml @ 250 mls/hr IVPB Q24H [facility] Rx#:[id number] Oral 100 440 240 Output: Urine 250 Other: Voiding Method Urinal # Voids 1 3 - Exam PHYSICAL EXAMINATION: Patient is lying in the bed comfortably, no acute distress, awake alert and oriented.. HEENT: Normocephalic. Neck is supple. Pupils reactive. Nostrils clear. Oral cavity is moist. Ears reveal no drainage. Neck reveals no JVD, carotid bruits, or thyromegaly. CHEST EXAMINATION: Trachea is central. Symmetrical expansion. Lung sparks clear to auscultation and percussion. CARDIAC: Normal S1, S2 with no gallops. No murmurs ABDOMEN: Soft. Bowel sounds normal. No organomegaly. No abdominal bruits. Extremities: reveal no edema. No clubbing or cyanosis Neurologically awake, alert, oriented x3 with well-coordinated movements. No fo don deficits noted Skin: No rash or skin lesions. Psychiatric: Coperative. Nonsuicidal Musculoskeletal: No joint swelling or deformity. Normal range of motion. - Labs CBC & Chem 7: 03/19/20 05:29 03/19/20 05:29 Labs: Abnormal Lab Results - Last 24 Hours (Table) 03/18/20 03/18/20 03/18/20 Range/Units 05:43 05:43 05:43 WBC 12.6 H (3.8-10.6) k/uL Neutrophils # 10.6 H (1.3-7.7) k/uL Fibrinogen 583 H (200-500) mg/dL D-Dimer 0.65 H (<0.60) mg/L FEU BUN 28.0 H (9.0-27.0) mg/dL BUN/Creatinine Ratio 35.00 H (12.00-20.00) Ratio Ferritin 679.1 H (22.0-322.0) ng/mL AST 57 H (14-35) U/L ALT 64 H (10-49) U/L Lactate Dehydrogenase 380 H (120-246) U/L C-Reactive Protein 13.5 H (0.0-0.8) mg/dL Total Protein 6.1 L (6.2-8.2) g/dL Microbiology - Last 24 Hours (Table) 03/15/20 10:12 Blood Culture - Preliminary Blood No Growth after 72 hours Assessment and Plan Assessment: Acute COVID-19 pneumonia Acute hypoxic respiratory failure secondary to pneumonia. Elevated inflammatory markers Coronary artery disease with history of stent placement Hypertension Hyperlipidemia DVT prophylaxis currently on Lovenox Plan: Patient will be continued on oxygen at 6 L-->2L, on Decadron 6 mg daily and Lovenox 40 mg subcu twice daily. Pulmonary is following. Chest x-ray showed pneumonia. on remdesivir therapy. Continue with home medications and follow-up closely. Isolation with droplet and contact precautions. Time with Patient: Greater than 30
--- NOTE | 2020-03-20 11:05 | P.PN ---
Subjective Progress Note Date: 03/19/20 Principal diagnosis: Acute COVID-19 pneumonia Patient is a 59-year-old male with a known history of coronary disease with history of stent placement, hypertension, hyperlipidemia, history of [place] and no prior history of smoking presents to ER with complaints of shortness of breath and exertional dyspnea. Patient was seen in the ER yesterday with symptoms of shortness of breath and cough and subjective fevers. Patient has been having symptoms since last Saturday. Also states that he lost smell and taste. Patient states that he visited family in [place] and came back recently. Patient was tested positive for Covid 19. Patient was feeling better and was sent home. Today he presented with worsening symptoms of shortness of breath. Patient was initially placed on 100% nonrebreather with 15 L oxygen and currently titrate down to 6 L. Patient does have minimal cough. Does have subjective chills and myalgias. No headache or dizziness or lightheadedness. Chest x-ray showed correlate for pneumonia. EKG showed normal sinus rhythm Laboratory data showed WBC 11.6, hemoglobin 15.1 platelets 276 D-dimer 0.77 BUN 26 and creatinine 0.84 Ferritin 757.8, LDH 857, CRP 133 and procalcitonin 0.19 03/16/2020 Patient is currently lying in the bed comfortably. Titrate down to 2 L oxygen via nasal cannula and is saturating at 94%. Currently being continued on remd esivir day 2, Decadron and Lovenox. Pulmonary is following as well. No cough or sputum production. Patient has been afebrile. No chest pain or shortness of breath. No headache or dizziness or lightheadedness. 03/17/2020 Patient is currently lying in the bed comfortably. Still requiring oxygen 2 L with another cannula and saturating at 91-92%. Patient is being continued on Decadron, Lovenox and Remdesivir. No complaints of nausea vomiting. Patient has been afebrile. Next and laboratory data showed WBC 12.5, hemoglobin 14.7 and platelets 344 BUN 2018 creatinine 0.9. Ferritin 705, LDH 370, C-reactive getting trending down to 14 today 03/18/20 Patient is currently lying in the bed comfortably. Denied any complaints of worsening shortness of breath or chest pain. Patient is still requiring oxygen at 2 L by nasal cannula and saturating just about 90. Cultures have been negative. Patient is being continued on telemetry as well. Patient is also on Decadron, Lovenox and vitamin supplementation Pepcid. Patient has been afebrile otherwise. 03/19/2020 Patient is currently resting in the bed comfortably. Still requiring oxygen at 3 L via nasal cannula. Currently being continued on Remdesivir. Also on Decadron and Lovenox. Laboratory data showed d-dimer 0.79, CRP 11.6, LDH 391. current medications reviewed. Objective - Vital Signs Vital signs: Vital Signs Temp 98.2 F 03/19/20 17:37 Pulse 75 03/19/20 17:37 Resp 18 03/19/20 17:37 BP 127/75 03/19/20 17:37 Pulse Ox 91 L 03/19/20 17:37 Intake & Output 03/19/20 03/19/20 03/20/20 06:59 18:59 06:59 Other: Voiding Method Toilet Urinal # Voids 2 3 - Exam PHYSICAL EXAMINATION: Patient is lying in the bed comfortably, no acute distress, awake alert and oriented.. HEENT: Normocephalic. Neck is supple. Pupils reactive. Nostrils clear. Oral cavity is moist. Ears reveal no drainage. Neck reveals no JVD, carotid bruits, or thyromegaly. CHEST EXAMINATION: Trachea is central. Symmetrical expansion. Lung sparks clear to auscultation and percussion. CARDIAC: Normal S1, S2 with no gallops. No murmurs ABDOMEN: Soft. Bowel sounds normal. No organomegaly. No abdominal bruits. Extremities: reveal no edema. No clubbing or cyanosis Neurologically awake, alert, oriented x3 with well-coordinated movements. No focal deficits noted Skin: No rash or skin lesions. Psychiatric: Coperative. Nonsuicidal Musculoskeletal: No joint swelling or deformity. Normal range of motion. - Labs CBC & Chem 7: 03/19/20 05:29 03/19/20 05:29 Labs: Abnormal Lab Results - Last 24 Hours (Table) 03/19/20 03/19/20 03/19/20 Range/Units 05:29 05:29 05:29 WBC 13.8 H (3.8-10.6) k/uL Neutrophils # 11.2 H (1.3-7.7) k/uL Fibrinogen 583 H (200-500) mg/dL D-Dimer 0.79 H (<0.60) mg/L FEU BUN 31.0 H (9.0-27.0) mg/dL BUN/Creatinine Ratio 34.44 H (12.00-20.00) Ratio Calcium 8.6 L (8.7-10.3) mg/dL Ferritin 562.5 H (22.0-322.0) ng/mL AST 70 H (14-35) U/L ALT 86 H (10-49) U/L Lactate Dehydrogenase 391 H (120-246) U/L C-Reactive Protein 11.6 H (0.0-0.8) mg/dL Total Protein 5.8 L (6.2-8.2) g/dL Albumin 3.60 L (3.80-4.90) g/dL Microbiology - Last 24 Hours (Table) 03/15/20 10:12 Blood Culture - Preliminary Blood No Growth after 96 hours Assessment and Plan Assessment: Acute COVID-19 pneumonia Acute hypoxic respiratory failure secondary to pneumonia. Elevated inflammatory markers Coronary artery disease with history of stent placement Hypertension Hyperlipidemia DVT prophylaxis currently on Lovenox Plan: Patient will be continued on oxygen at 6 L-->2L, on Decadron 6 mg daily and Lovenox 40 mg subcu twice daily. Pulmonary is following. Chest x-ray showed pneumonia. on remdesivir therapy. Continue with home medications and follow-up closely. Isolation with droplet and contact precautions. Time with Patient: Greater than 30
--- NOTE | 2020-03-20 15:28 | P.PN ---
Subjective Progress Note Date: 03/20/20 Principal diagnosis: CoVID 19 pneumonitis 59-year-old male patient coming in for an acute Covid 19 related pneumonia. The patient is known to have coronary artery disease and previous coronary stenting. The patient is also known to have hypertension and hyperlipidemia. He pre sented to the ED with shortness of breath. He was apparently in the emergency department 24 hours ago and he was released home as the patient was quite stable. His condition got worse and for that reason he came into the hospital because of worsening shortness of breath. Upon arrival to the ED, the patient was brought in with a nonrebreather facemask. He denied having any chest pain. Denied having any fever. He had a white cell count of 11.6 and hemoglobin of 15.2. D-dimer was at 0.77. The rest of the correlation profile was within normal limits. Renal function was stable. Electrodes were stable. Ferritin level was 757. LDH level was a 757. C-reactive protein was 133 and a troponin was negative. The pro-calcitonin was 0.19. The chest x-ray showed patchy bilateral airspace disease consistent with pneumonia. The patient had no evidence of any pneumothorax. The right hemidiaphragm was elevated. On 03/16/2020 patient seen in follow-up on medical surgical floor, he is on 2 L of oxygen pulse ox 94%, today is his second day of Remdesivir, he is on oral Decadron, she is feeling better today, he is on oral Pepcid, and Lovenox for anticoagulation. No acute events overnight. No cough. No chest pain. On 03/17/2020 patient seen in follow-up on medical surgical floor. He reports feeling better today, breathing easier, he is on 2 L of oxygen pulse ox is 91- 93%, sensitive stable, his been afebrile. He is on day 3 of Remdesivir, he is on oral steroids in the form of Decadron, Pepcid, and Lovenox for anticoagulation, no nausea vomiting or diarrhea, no chest discomfort, no palpitations, today's labs have been reviewed, showing with blood cell count of 12.5, hemoglobin is 14.7, fibrinogen is 582, electrolytes within normal limits, BUN of 28 and creatinine 0.9. Ferritin level is 705, LDH is improving, and is down to 370, CRP is down significantly to 14 from 133. Pro-calcitonin slightly improved down to 0.17, from 0.19 The patient is seen today 03/18/2020 in follow-up on the regular medical floor. He is currently sitting up in bed. Awake and alert in no acute distress. Breathing a bit easier today compared to yesterday. Maintaining good O2 saturation in the 90s on 2 L/m per nasal cannula. Afebrile. Blood cultures reveal no growth. White count 12.6. Hemoglobin 14.6. Lymphocytes 1.0. D- dimer 0.65. Fibrinogen 583. Sodium 142. Potassium 4.9. Ferritin 679. LDH 380. Today is day #4 of Remdesivir. He remains on oral steroids in the form of Decadron, Pepcid, and Lovenox for anticoagulation. The patient is seen today 03/19/2020 in follow-up on the regular medical floor. He is currently resting comfortably in bed. Awake and alert in no distress. 18 O2 saturation low 90s on 3 L/m per nasal cannula. He is afebrile. Hemodynamically stable. White count 13.8. Hemoglobin 14.2. Lymphocytes 1.4. D-dimer 0.79. Sodium 142. Potassium 4.6. Creatinine 0.9. Ferritin 562. LDH 391. C-reactive protein 11.6. He is on Day #5 of Remdesivir. Continued on dexamethasone, Lovenox, zinc, vitamin C, Pepcid and zinc. The patient is seen today 03/20/2020 in follow-up on the regular medical floor. He is awake and alert in no acute distress. Resting comfortably in bed. He continues to maintain O2 saturations in the 90s on 3 L/m per nasal cannula. Afebrile. White count 13.8. Hemoglobin 14.2. Lymphocytes 1.4. D-dimer 0.79. Sodium 42. Potassium 4.6. Creatinine 0.9. Ferritin 562. LDH 391. C-reactive protein 11.6. He has completed his course of Remdesivir. Continue on Lovenox, dexamethasone, Pepcid, zinc, vitamin C. Objective - Vital Signs Vital signs: Vital Signs Temp 98.4 F 03/20/20 14:00 Pulse 68 03/20/20 14:00 Resp 16 03/20/20 14:00 BP 115/67 03/20/20 14:00 Pulse Ox 90 L 03/20/20 14:00 Intake & Output 03/19/20 03/20/20 03/20/20 18:59 06:59 18:59 Intake Total 250 Balance 250 Intake: Oral 250 Other: Voiding Method Toilet Urinal # Voids 3 2 2 - Exam GENERAL EXAM: Alert, very pleasant, 59-year-old white male, on 3 L of oxygen and pulse ox 91% comfortable in no apparent distress. HEAD: Normocephalic/atraumatic. EYES: Normal reaction of pupils, equal size. Conjunctiva pink, sclera white. NOSE: Clear with pink turbinates. THROAT: No erythema or exudates. NECK: No masses, no JVD, no thyroid enlargement, no adenopathy. CHEST: No chest wall deformity. Symmetrical expansion. LUNGS: Equal air entry with bilateral scattered rhonchi. CVS: Regular rate and rhythm, normal S1 and S2, no gallops, no murmurs, no rubs ABDOMEN: Soft, nontender. No hepatosplenomegaly, normal bowel sounds, no guarding or rigidity. EXTREMITIES: No clubbing, no edema, no cyanosis, 2+ pulses and upper and lower extremities. MUSCULOSKELETAL: Muscle strength and tone normal. SPINE: No scoliosis or deformity SKIN: No rashes CENTRAL NERVOUS SYSTEM: Alert and oriented -3. No focal deficits, tone is normal in all 4 extremities. PSYCHIATRIC: Alert and oriented -3. Appropriate affect. Intact judgment and insight. - Labs CBC & Chem 7: 03/19/20 05:29 03/19/20 05:29 Labs: Microbiology - Last 24 Hours (Table) 03/15/20 10:12 Blood Culture - Preliminary Blood No Growth after 120 hours Assessment and Plan Assessment: 1 acute Covid 19 pneumonia. The patient presenting to the hospital because of worsening shortness of breath and hypoxemia in addition to bilateral patchy airspace disease/infiltrates consistent with pneumonia 2 acute hypoxic respiratory failure secondary to above 3 leukocytosis, likely reactive 4 elevated inflammatory markers secondary to Covid 19 related infection 5 coronary artery disease with previous coronary intervention and stenting 6 hyperlipidemia 7 hypertension 8 history of nephrolithiasis/kidney stones Plan The patient was seen and evaluated by Dr. Longo Completed his Remdesivir Continue current treatment plan Titrate down the FiO2 as tolerated We'll continue to follow I, the cosigning physician, performed a history & physical examination of the patient. Lungs sounds few scattered rhonchi. Maintaining good O2 saturations in the 90s on 3 L/m per nasal cannula. I discussed the assessment and plan of care with my nurse practitioner, Fidelia Gandhi. I attest to the above note as dictated by her.
--- NOTE | 2020-03-21 00:20 | P.PN ---
Subjective Progress Note Date: 03/20/20 Principal diagnosis: Acute COVID-19 pneumonia Patient is a 59-year-old male with a known history of coronary disease with history of stent placement, hypertension, hyperlipidemia, history of MD and no prior history of smoking presents to ER with complaints of shortness of breath and exertional dyspnea. Patient was seen in the ER yesterday with symptoms of shortness of breath and cough and subjective fevers. Patient has been having symptoms since last Saturday. Also states that he lost smell and taste. Patient states that he visited family in [place] and came back recently. Patient was tested positive for Covid 19. Patient was feeling better and was sent home. Today he presented with worsening symptoms of shortness of breath. Patient was initially placed on 100% nonrebreather with 15 L oxygen and currently titrate down to 6 L. Patient does have minimal cough. Does have subjective chills and myalgias. No headache or dizziness or lightheadedness. Chest x-ray showed correlate for pneumonia. EKG showed normal sinus rhythm Laboratory data showed WBC 11.6, hemoglobin 15.1 platelets 276 D-dimer 0.77 BUN 26 and creatinine 0.84 Ferritin 757.8, LDH 857, CRP 133 and procalcitonin 0.19 03/16/2020 Patient is currently lying in the bed comfortably. Titrate down to 2 L oxygen via nasal cannula and is saturating at 94%. Currently being continued on remd esivir day 2, Decadron and Lovenox. Pulmonary is following as well. No cough or sputum production. Patient has been afebrile. No chest pain or shortness of breath. No headache or dizziness or lightheadedness. 03/17/2020 Patient is currently lying in the bed comfortably. Still requiring oxygen 2 L with another cannula and saturating at 91-92%. Patient is being continued on Decadron, Lovenox and Remdesivir. No complaints of nausea vomiting. Patient has been afebrile. Next and laboratory data showed WBC 12.5, hemoglobin 14.7 and platelets 344 BUN 2018 creatinine 0.9. Ferritin 705, LDH 370, C-reactive getting trending down to 14 today 03/18/20 Patient is currently lying in the bed comfortably. Denied any complaints of worsening shortness of breath or chest pain. Patient is still requiring oxygen at 2 L by nasal cannula and saturating just about 90. Cultures have been negative. Patient is being continued on telemetry as well. Patient is also on Decadron, Lovenox and vitamin supplementation Pepcid. Patient has been afebrile otherwise. 03/19/2020 Patient is currently resting in the bed comfortably. Still requiring oxygen at 3 L via nasal cannula. Currently being continued on Remdesivir. Also on Decadron and Lovenox. Laboratory data showed d-dimer 0.79, CRP 11.6, LDH 391. 03/20/2020 Patient is lying in the bed comfortably. Remains on oxygen at 2 L via nasal cannula. Patient has been afebrile. Lab data reviewed. Completed 5 days of remdesivir course. Continue on dexamethasone 6 mg daily, Lovenox, Pepcid and vitamin supplementation. Anticipate discharge if the breathing status continues to improve. Pulmonary is on board. current medications reviewed. Objective - Vital Signs Vital signs: Vital Signs Temp 98.4 F 03/20/20 14:00 Pulse 68 03/20/20 14:00 Resp 16 03/20/20 14:00 BP 115/67 03/20/20 14:00 Pulse Ox 90 L 03/20/20 14:00 Intake & Output 03/19/20 03/20/20 03/20/20 18:59 06:59 18:59 Intake Total 250 Balance 250 Intake: Oral 250 Other: Voiding Method Toilet Urinal # Voids 3 2 2 - Exam PHYSICAL EXAMINATION: Patient is lying in the bed comfortably, no acute distress, awake alert and oriented.. HEENT: Normocephalic. Neck is supple. Pupils reactive. Nostrils clear. Oral cavity is moist. Ears reveal no drainage. Neck reveals no JVD, carotid bruits, or thyromegaly. CHEST EXAMINATION: Trachea is central. Symmetrical expansion. Lung sparks clear to auscultation and percussion. CARDIAC: Normal S1, S2 with no gallops. No murmurs ABDOMEN: Soft. Bowel sounds normal. No organomegaly. No abdominal bruits. Extremities: reveal no edema. No clubbing or cyanosis Neurologically awake, alert, oriented x3 with well-coordinated movements. No focal deficits noted Skin: No rash or skin lesions. Psychiatric: Coperative. Nonsuicidal Musculoskeletal: No joint swelling or deformity. Normal range of motion. - Labs CBC & Chem 7: 03/19/20 05:29 03/19/20 05:29 Labs: Microbiology - Last 24 Hours (Table) 03/15/20 10:12 Blood Culture - Preliminary Blood No Growth after 120 hours Assessment and Plan Assessment: Acute COVID-19 pneumonia Acute hypoxic respiratory failure secondary to pneumonia. Elevated inflammatory markers Coronary artery disease with history of stent placement Hypertension Hyperlipidemia DVT prophylaxis currently on Lovenox Plan: Patient will be continued on oxygen at 6 L-->2L, on Decadron 6 mg daily and Lovenox 40 mg subcu twice daily. Pulmonary is following. Chest x-ray showed pneumonia. on remdesivir therapy. Continue with home medications and follow-up closely. Isolation with droplet and contact precautions. Time with Patient: Greater than 30
[2020-03-21 07:10] LABS: Basophils # (A) 0.1 k/uL (0-0.2); Basophils % (A) 1 %; Eosinophils # (A) 0.1 k/uL (0-0.7); Eosinophils % (A) 0 %; HCT 44.3 % (39.0-53.0); HGB 14.8 gm/dL (13.0-17.5); Lymphocytes # (A) 1.5 k/uL (1.0-4.8); Lymphocytes % (A) 10 %; MCH 29.3 pg (25.0-35.0); MCHC 33.5 g/dL (31.0-37.0); MCV 87.7 fL (80.0-100.0); Mean Platelet Volume 6.6; Monocytes # (A) 0.7 k/uL (0-1.0); Monocytes % (A) 5 %; Neutrophils # (A) 12.2 k/uL (1.3-7.7); Neutrophils % (A) 83 %; Platelet Count 512 k/uL (150-450); RBC 5.05 m/uL (4.30-5.90); WBC 14.7 k/uL (3.8-10.6)
[2020-03-21] MEDS: GABAPENTIN 400 MG CAP PO SCH (08:19)
[2020-03-21] MEDS: ENOXAPARIN 40 MG/0.4 ML SYRINGE SQ SCH (08:19)
[2020-03-21] MEDS: ISOSORBIDE MONONITRATE ER 30 MG TAB.ER.24H PO SCH (08:19)
[2020-03-21] MEDS: lisinopriL 20 MG TAB PO SCH (08:20)
[2020-03-21] MEDS: ASPIRIN 81 MG PO SCH (08:20)
[2020-03-21] MEDS: dexAMETHasone 2 MG TAB PO SCH (08:20)
[2020-03-21] MEDS: ASCORBIC ACID 500 MG TAB PO SCH (08:20)
[2020-03-21] MEDS: FAMOTIDINE 20 MG TAB PO SCH (08:20)
[2020-03-21] MEDS: ZINC SULFATE 220 MG CAP PO SCH (08:20)
[2020-03-21] MEDS: ALPRAZolam 0.25 MG TAB PO PRN (08:21)
[2020-03-21] MEDS: CLOPIDOGREL 75 MG TAB PO SCH (08:21)
[2020-03-21] MEDS: ATORVASTATIN 20 MG TAB PO SCH (08:21)
--- NOTE | 2020-03-21 09:15 | P.PN ---
Subjective From the records Patient is a 59-year-old male with a known history of coronary disease with history of stent placement, hypertension, hyperlipidemia, history of AL and no prior history of smoking presents to ER with complaints of shortness of breath and exertional dyspnea. Patient was seen in the ER yesterday with symptoms of shortness of breath and cough and subjective fevers. Patient has been having symptoms since last Saturday. Also states that he lost smell and taste. Patient states that he visited family in [place] and came back recently. Patient was tested positive for Covid 19. Patient was feeling better and was sent home. Today he presented with worsening symptoms of shortness of breath. Patient was initially placed on 100% nonrebreather with 15 L oxygen and currently titrate down to 6 L. Patient does have minimal cough. Does have subjective chills and myalgias. No headache or dizziness or lightheadedness. Chest x-ray showed correlate for pneumonia. EKG showed normal sinus rhythm Subjective: This is the first in taking care of the patient 03/21/2020 This is a pleasant 59 years old male who presents with respiratory distress found to have bilateral Covid pneumonia and acute hypoxic respiratory failure. He is been followed closely by pulmonary service. Currently he is on Lovenox 40 mg twice daily, ascorbic acid and zinc. He finished his Remdeesivir as per pulmonary team. Labs from today showing still have leukocytosis of 14.7 k, . D-dimer stable and slightly elevated at 0.76. BMP is still pending He feels already better, he was sitting at the edge of the bed and asking when he can go home. Objective - Vital Signs Vital signs: Vital Signs Temp 98.3 F 03/21/20 06:00 Pulse 55 L 03/21/20 06:00 Resp 18 03/21/20 06:00 BP 128/80 03/21/20 06:00 Pulse Ox 90 L 03/21/20 06:00 Intake & Output 03/20/20 03/21/20 03/21/20 18:59 06:59 18:59 Other: Voiding Method Toilet Urinal # Voids 2 2 - Exam GENERAL: The patient is alert and oriented x3, not in any acute distress. Well developed, well nourished. HEENT: Pupils are round and equally reacting to light. EOMI. No scleral icterus. No conjunctival pallor. Normocephalic, atraumatic. No pharyngeal erythema. No thyromegaly. CARDIOVASCULAR: S1 and S2 present. No murmurs, rubs, or gallops. PULMONARY: Chest is clear to auscultation, no wheezing or crackles. ABDOMEN: Soft, nontender, nondistended, normoactive bowel sounds. No palpable organomegaly. MUSCULOSKELETAL: No joint swelling or deformity. EXTREMITIES: No cyanosis, clubbing, or pedal edema. NEUROLOGICAL: Gross neurological examination did not reveal any focal deficits. SKIN: No rashes. no petechiae. - Labs CBC & Chem 7: 03/21/20 05:43 03/19/20 05:29 Labs: Abnormal Lab Results - Last 24 Hours (Table) 03/21/20 03/21/20 Range/Units 05:43 05:43 WBC 14.7 H (3.8-10.6) k/uL Plt Count 512 H (150-450) k/uL Neutrophils # 12.2 H (1.3-7.7) k/uL D-Dimer 0.76 H (<0.60) mg/L FEU Microbiology - Last 24 Hours (Table) 03/15/20 10:12 Blood Culture - Preliminary Blood No Growth after 120 hours Assessment and Plan Assessment: 1 acute bilateral Covid 19 pneumonia. 2 acute hypoxic respiratory failure secondary to above 3 leukocytosis, likely reactive 4 elevated inflammatory markers secondary to Covid 19 related infection 5 history of coronary artery disease with previous coronary intervention and stenting 6 hyperlipidemia 7 hypertension 8 history of nephrolithiasis/kidney stones Plan: This is a pleasant 59 years old male who presents with Covid pneumonia. Continue with present and ascorbic acid. Continue with Lovenox. Pulmonary team is following closely Monitor labs. Continue with oxygen as needed. Patient is already on aspirin Plavix and we'll continue that Labs and medication were reviewed.. Continue same treatment. Continue with symptomatic treatment. Resume home medication. Monitor lytes and vitals. DVT and GI prophylaxis. Further recommendationsas per clinical course of the patient DVT prophylaxis: Subcutaneous Lovenox GI Prophylaxis: Pepcid
[2020-03-21 09:52] LABS: African American GFR (CKD) 107.2 (60.0-200.0); Albumin 3.5 g/dL (3.80-4.90); Albumin/Globulin Ratio 1.52 (1.60-3.17); Anion Gap 7.8 mmol/L (4.00-12.00); BUN/Creat Ratio 23.33 Ratio (12.00-20.00); Bilirubin, Conjugated 0.2 mg/dL (0.20-0.40); Bilirubin,Unconjugated 0.2 mg/dL; C Reactive Protein 7.8 mg/dL (0.0-0.8); Calcium 8.6 mg/dL (8.7-10.3); Carbon Dioxide 29.2 mmol/L (21.6-31.8); Ferritin 520.8 ng/mL (22.0-322.0); Globulin 2.3 g/dL (1.6-3.3); Non-African American GFR(CKD) 92.5 (60.0-200.0); Potassium 4.8 mmol/L (3.5-5.5); Total Bilirubin 0.4 mg/dL (0.3-1.2); Total Protein 5.8 g/dL (6.2-8.2)
[2020-03-21 10:36] VITALS: BMI 30.5
[2020-03-21 13:55] VITALS: PULSE 70; RESP 16; TEMP 98.3
[2020-03-21 14:35] VITALS: BP 103/52
--- NOTE | 2020-03-21 16:10 | P.PN ---
Subjective Progress Note Date: 03/21/20 Principal diagnosis: COVID19 pneumonitis 59-year-old male patient coming in for an acute Covid 19 related pneumonia. The patient is known to have coronary artery disease and previous coronary stenting. The patient is also known to have hypertension and hyperlipidemia. He pres ented to the ED with shortness of breath. He was apparently in the emergency department 24 hours ago and he was released home as the patient was quite stable. His condition got worse and for that reason he came into the hospital because of worsening shortness of breath. Upon arrival to the ED, the patient was brought in with a nonrebreather facemask. He denied having any chest pain. Denied having any fever. He had a white cell count of 11.6 and hemoglobin of 15.2. D-dimer was at 0.77. The rest of the correlation profile was within normal limits. Renal function was stable. Electrodes were stable. Ferritin level was 757. LDH level was a 757. C-reactive protein was 133 and a troponin was negative. The pro-calcitonin was 0.19. The chest x-ray showed patchy bilateral airspace disease consistent with pneumonia. The patient had no evidence of any pneumothorax. The right hemidiaphragm was elevated. On 03/16/2020 patient seen in follow-up on medical surgical floor, he is on 2 L of oxygen pulse ox 94%, today is his second day of Remdesivir, he is on oral Decadron, she is feeling better today, he is on oral Pepcid, and Lovenox for anticoagulation. No acute events overnight. No cough. No chest pain. On 03/17/2020 patient seen in follow-up on medical surgical floor. He reports feeling better today, breathing easier, he is on 2 L of oxygen pulse ox is 91- 93%, sensitive stable, his been afebrile. He is on day 3 of Remdesivir, he is on oral steroids in the form of Decadron, Pepcid, and Lovenox for anticoagulation, no nausea vomiting or diarrhea, no chest discomfort, no palpitations, today's labs have been reviewed, showing with blood cell count of 12.5, hemoglobin is 14.7, fibrinogen is 582, electrolytes within normal limits, BUN of 28 and creatinine 0.9. Ferritin level is 705, LDH is improving, and is down to 370, CRP is down significantly to 14 from 133. Pro-calcitonin slightly improved down to 0.17, from 0.19 On 03/21/2020 she is seen in follow-up on Gen. medical surgical floor, he is on 3 L of oxygen pulse ox is 90%, he states he is feeling better, he is breathing comfortably, he finishes Remdesivir on Saturday night, he continues on oral Decadron, he is on Lovenox 40 mg twice daily, vitamin C, and zinc supplement. please of chest discomfort, no worsening dyspnea, he is up and leading to the bathroom, tolerating activity very well, no nausea vomiting or diarrhea. no fever or chills Objective - Vital Signs Vital signs: Vital Signs Temp 98.3 F 03/21/20 13:54 Pulse 70 03/21/20 13:54 Resp 16 03/21/20 13:54 BP 103/52 03/21/20 14:34 Pulse Ox 91 L 03/21/20 13:54 Intake & Output 03/20/20 03/21/20 03/21/20 18:59 06:59 18:59 Weight 102.058 kg Other: Voiding Method Toilet Urinal # Voids 2 2 1 - Exam GENERAL EXAM: Alert, very pleasant, 59-year-old white male, on 3 L of oxygen and pulse ox 91% comfortable in no apparent distress. HEAD: Normocephalic/atraumatic. EYES: Normal reaction of pupils, equal size. Conjunctiva pink, sclera white. NOSE: Clear with pink turbinates. THROAT: No erythema or exudates. NECK: No masses, no JVD, no thyroid enlargement, no adenopathy. CHEST: No chest wall deformity. Symmetrical expansion. LUNGS: Equal air entry with no crackles, wheeze, rhonchi or dullness. CVS: Regular rate and rhythm, normal S1 and S2, no gallops, no murmurs, no rubs ABDOMEN: Soft, nontender. No hepatosplenomegaly, normal bowel sounds, no guarding or rigidity. EXTREMITIES: No clubbing, no edema, no cyanosis, 2+ pulses and upper and lower extremities. MUSCULOSKELETAL: Muscle strength and tone normal. SPINE: No scoliosis or deformity SKIN: No rashes CENTRAL NERVOUS SYSTEM: Alert and oriented -3. No focal deficits, tone is normal in all 4 extremities. PSYCHIATRIC: Alert and oriented -3. Appropriate affect. Intact judgment and insight. - Labs CBC & Chem 7: 03/21/20 05:43 03/21/20 05:43 Labs: Abnormal Lab Results - Last 24 Hours (Table) 03/21/20 03/21/20 03/21/20 Range/Units 05:43 05:43 05:43 WBC 14.7 H (3.8-10.6) k/uL Plt Count 512 H (150-450) k/uL Neutrophils # 12.2 H (1.3-7.7) k/uL D-Dimer 0.76 H (<0.60) mg/L FEU BUN/Creatinine Ratio 23.33 H (12.00-20.00) Ratio Glucose 122 H (70-110) mg/dL Calcium 8.6 L (8.7-10.3) mg/dL Ferritin 520.8 H (22.0-322.0) ng/mL AST 72 H (14-35) U/L ALT 157 H (10-49) U/L Lactate Dehydrogenase 381 H (120-246) U/L C-Reactive Protein 7.8 H (0.0-0.8) mg/dL Total Protein 5.8 L (6.2-8.2) g/dL Albumin 3.50 L (3.80-4.90) g/dL Albumin/Globulin Ratio 1.52 L (1.60-3.17) g/dL Microbiology - Last 24 Hours (Table) 03/15/20 10:12 Blood Culture - Final Blood No Growth after 144 hours Assessment and Plan Plan: Assessment: 1 acute Covid 19 pneumonia. The patient presenting to the hospital because of worsening shortness of breath and hypoxemia in addition to bilateral patchy airspace disease/infiltrates consistent with pneumonia, completed the course of Remdesivir on 03/19/2020, and status post transfusion of one unit of convalescent plasma 2 acute hypoxic respiratory failure secondary to above 3 leukocytosis, likely reactive 4 elevated inflammatory markers secondary to Covid 19 related infection 5 coronary artery disease with previous coronary intervention and stenting 6 hyperlipidemia 7 hypertension 8 history of nephrolithiasis/kidney stones Plan Wean FiO2, to maintain O2 sat at 90%, clinically patient feels better, breathing comfortably, continue with oral Decadron. Finishes Remdesivir last Saturday, continue current dose of Lovenox, no worsening dyspnea, chest discomfort, stable for discharge home from pulmonary perspective requiring less than 5 L/m oxygen, follow-up with Dr. Moran in the office in 3-4 weeks I performed a history & physical examination of the patient and discussed their management with my nurse practitioner, Rebecca Jarrell. I reviewed the nurse practitioner's note and agree with the documented findings and plan of care. Lung sounds are positive for diminished breath sounds. The findings and the impression was discussed with the patient. I attest to the documentation by the nurse practitioner. Time with Patient: Less than 30
== END 2020-03-21 17:32 | disposition home health service (06) | DRG 177 ==
LOC: EC 09:45 → 4SSUR 11:19
PROVIDERS: ADMIT Internal Medicine; ATTEND Internal Medicine
PROC: XW033E5 Introduction of Remdesivir Anti-infective into Peripheral Vein, Percutaneous Approach, New Technology Group 5 (ICD-10-PCS; principal; 2020-03-15)
DX: U07.1 COVID-19 (principal); J12.89 Other viral pneumonia; J96.01 Acute respiratory failure with hypoxia; E78.5 Hyperlipidemia, unspecified; I10 Essential (primary) hypertension; I25.10 Atherosclerotic heart disease of native coronary artery without angina pectoris; I25.2 Old myocardial infarction; Z79.82 Long term (current) use of aspirin; Z79.02 Long term (current) use of antithrombotics/antiplatelets; Z79.899 Other long term (current) drug therapy; Z95.5 Presence of coronary angioplasty implant and graft; Z87.442 Personal history of urinary calculi; Z87.39 Personal history of other diseases of the musculoskeletal system and connective tissue; Z98.890 Other specified postprocedural states
CPT/HCPCS: 36415; 71045; 80048; 80053; 80076; 82728; 83605; 83615; 83735; 84145; 84484; 85025; 85379; 85384; 85610; 85730; 86140; 87040; 93005; 96372; 96374; 99285

== ENCOUNTER 2022-09-08 16:09 | Emergency (ER) | payer MEDICARE ==
[2022-09-08 16:14] VITALS: RESP 18
[2022-09-08 16:37] LABS: Basophils % (A) 0 %; Eosinophils # (A) 0.3 k/uL (0-0.7); Eosinophils % (A) 4 %; HCT 43.7 % (39.0-53.0); HGB 15.1 gm/dL (13.0-17.5); Lymphocytes # (A) 1.8 k/uL (1.0-4.8); Lymphocytes % (A) 20 %; MCH 29.2 pg (25.0-35.0); MCHC 34.5 g/dL (31.0-37.0); MCV 84.8 fL (80.0-100.0); Mean Platelet Volume 7.2; Monocytes # (A) 0.5 k/uL (0-1.0); Monocytes % (A) 6 %; Neutrophils # (A) 6.3 k/uL (1.3-7.7); Neutrophils % (A) 68 %; Platelet Count 281 k/uL (150-450); RBC 5.15 m/uL (4.30-5.90); RDW 12.7 % (11.5-15.5); WBC 9.2 k/uL (3.8-10.6)
[2022-09-08 16:47] LABS: Partial Thromboplastin Time 22.8 sec (22.0-30.0); Prothrombin Time 10.5 sec (9.0-12.0)
[2022-09-08 16:51] LABS: ALT 35 U/L (4-49); AST 42 U/L (17-59); African American GFR (CKD) >90 (>60 ml/min/1.73 sqM); Albumin 4.3 g/dL (3.5-5.0); Alkaline Phosphatase 108 U/L (38-126); Anion Gap 10 mmol/L; Blood Urea Nitrogen 13 mg/dL (9-20); Calcium 8.9 mg/dL (8.4-10.2); Carbon Dioxide 26 mmol/L (22-30); Chloride 104 mmol/L (98-107); Glucose 113 mg/dL (74-99); Magnesium 1.9 mg/dL (1.6-2.3); Non-African American GFR(CKD) >90 (>60 ml/min/1.73 sqM); Potassium 3.9 mmol/L (3.5-5.1); Sodium 140 mmol/L (137-145); Total Bilirubin 0.8 mg/dL (0.2-1.3); Total Protein 7.1 g/dL (6.3-8.2)
--- NOTE | 2022-09-08 17:11 | XR ---
EXAMINATION TYPE: XR chest 2V DATE OF EXAM: 09/08/2022 COMPARISON: 03/18/2020 HISTORY: Shortness of breath TECHNIQUE: Frontal and lateral views of the chest are obtained. FINDINGS: Scattered senescent parenchymal changes noted. Hyperinflation compatible with COPD. No evidence for infiltrate. No evidence for atelectasis. Focal eventration right hemidiaphragm. Heart size is stable. Mediastinal structures are stable and grossly unremarkable. No evidence for hilar prominence. Degenerative changes dorsal spine. IMPRESSION: 1. No evidence for acute pulmonary disease.
--- NOTE | 2022-09-08 17:31 | ED ---
Chest Pain HPI - General Chief Complaint: Chest Pain Stated Complaint: CHEST PAIN Time Seen by Provider: 09/08/22 17:29 Source: patient, RN notes reviewed, old records reviewed Mode of arrival: ambulatory Limitations: no limitations - History of Present Illness Initial Comments: This is a 62-year-old male to the ER today. Presents for evaluation of chest pain. Patient was outside at an outdoor event earlier today and while driving home he began to have chest pain unlike prior chest pain. Patient has history of VT with what he believes his 7 stents. No recent fever cough congestion, no recent illness he has not felt fatigued and weak. No current shortness of breath and chest pain is improving. Chest pain is different than his normal what he describes as heart pain. Patient states because of his history illness: The ER anytime he has a different symptom. 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 MD Complaint: chest pain -: hour(s) Onset: during rest Pain Location: substernal, right chest Pain Radiation: back Severity: moderate Severity scale (1-10): 4 Quality: sharp Consistency: now resolved Improves With: nothing Worsens With: nothing Anginal Symptoms: diaphoresis Other Symptoms: palpitations Treatments Prior to Arrival: none - Related Data Home Medications Medication Instructions Recorded Confirmed Aspirin EC [Ecotrin Low Dose] 81 mg PO DAILY 03/15/20 03/15/20 Atorvastatin Calcium [Lipitor] 20 mg PO DAILY 03/15/20 03/15/20 Clopidogrel [Plavix] 75 mg PO DAILY 03/15/20 03/15/20 Enalapril [Vasotec] 10 mg PO DAILY 03/15/20 03/15/20 Isosorbide Mononitrate ER [Imdur] 30 mg PO DAILY 03/15/20 03/15/20 Zolpidem Tartrate [Ambien Cr] 12.5 mg PO HS PRN 03/15/20 03/15/20 raNITIdine HCL [Zantac] 150 mg PO BID 03/15/20 03/15/20 Previous Rx's Medication Instructions Recorded ALPRAZolam [Xanax] 0.25 mg PO BID PRN 2 Days #4 tab 03/21/20 Acetaminophen Tab [Tylenol] 650 mg PO Q6HR PRN tab 03/21/20 Ascorbic Acid [Vitamin C] 500 mg PO DAILY 21 Days #21 tab 03/21/20 Gabapentin [Neurontin] 800 mg PO BID cap 03/21/20 Zinc Sulfate [Orazinc] 220 mg PO DAILY #21 cap 03/21/20 dexAMETHasone ORAL [Hexadrol] 6 mg PO DAILY 4 Days #12 tab 03/21/20 Allergies Allergy/AdvReac Type Severity Reaction Status Date / Time No Known Allergies Allergy Verified 03/15/20 10:11 Review of Systems ROS Statement: Those systems with pertinent positive or pertinent negative responses have been documented in the HPI. ROS Other: All systems not noted in ROS Statement are negative. Past Medical History Past Medical History: Hyperlipidemia, Hypertension, Myocardial Infarction (VT) Additional Past Medical History / Comment(s): kidney stones Last Myocardial Infarction Date:: 03/15/2001 History of Any Multi-Drug Resistant Organisms: None Reported Past Surgical History: Heart Catheterization With Stent, Orthopedic Surgery Additional Past Surgical History / Comment(s): kindey surgery Past Anesthesia/Blood Transfusion Reactions: No Reported Reaction Date of Last Stent Placement:: [place] Past Psychological History: No Psychological Hx Reported Smoking Status: Never smoker Past Alcohol Use History: None Reported Past Drug Use History: None Reported General Exam Limitations: no limitations General appearance: alert, in no apparent distress Head exam: Present: atraumatic, normocephalic, normal inspection Eye exam: Present: normal appearance, PERRL, EOMI. Absent: scleral icterus, conjunctival injection, periorbital swelling ENT exam: Present: normal exam, mucous membranes moist Neck exam: Present: normal inspection. Absent: tenderness, meningismus, lymphadenopathy Respiratory exam: Present: normal lung sounds bilaterally. Absent: respiratory distress, wheezes, rales, rhonchi, stridor Cardiovascular Exam: Present: regular rate, normal rhythm, normal heart sounds. Absent: systolic murmur, diastolic murmur, rubs, gallop, clicks GI/Abdominal exam: Present: soft, normal bowel sounds. Absent: distended, tenderness, guarding, rebound, rigid Extremities exam: Present: normal inspection, full ROM, normal capillary refill. Absent: tenderness, pedal edema, joint swelling, calf tenderness Back exam: Present: normal inspection Neurological exam: Present: alert, oriented X3, CN II-XII intact Psychiatric exam: Present: normal affect, normal mood Skin exam: Present: warm, dry, intact, normal color. Absent: rash Course Vital Signs 09/08/22 09/08/22 16:12 18:35 Temperature 98.3 F 98.0 F Pulse Rate 68 87 Respiratory 18 18 Rate Blood Pressure 138/88 129/88 O2 Sat by Pulse 96 98 Oximetry - Reevaluation(s) Reevaluation #1: 09/08/22 23:02 Medical record is reviewed Reevaluation #2: 09/08/22 23:03 Patient informed results and questions answered Reevaluation #3: 09/08/22 23:03 Patient has no current chest pain Reevaluation #4: 09/08/22 23:03 Was pt. sent in by a medical professional or institution? @ -no Did you speak to anyone other than the patient for history? @ -no Did you review nursing and triage notes? @ -agree Were old charts reviewed? @ -no Differential Diagnosis? @ -prior EKG interpreted by me (3pts min.)? @ -yes X-rays interpreted by me (1pt min.)? @ -yes CT interpreted by me (1pt min.)? @ -no U/S interpreted by me (1pt. min.)? @ -no What testing was considered but not performed? (CT, X-rays, U/S, labs)? Why? @ -no What meds were considered but not given? Why? @ -no Did you discuss the management of the patient with other professionals? @ -no Did you reconcile home meds? @ -no Was smoking cessation discussed for >3mins.? @ -no Was critical care preformed (if so, how long)? @ -no Were there social determinants of health that impacted care today? How? (Homelessness, low income, unemployed, alcoholism, drug addiction, transportation, low edu. Level, literacy, decrease access to med. care, senior care, rehab)? @ -no Was there de-escalation of care discussed even if they declined? (Discuss DNR or withdrawal of care, Hospice)? @ -no What co-morbidities impacted this encounter? (DM, HTN, Smoking, COPD, CAD, Cancer, CVA, Hep., AIDS, mental health diagnosis, sleep apnea, morbid obesity)? @ -none Was patient admitted / discharged? @ -dc Undiagnosed new problem with uncertain prognosis? @ -no Drug Therapy requiring intensive monitoring for toxicity (Heparin, Nitro, Insulin, Cardizem)? @ -no Were any procedures done? @ -no Diagnosis/symptom? @ -Chest pain Acute, or Chronic, or Acute on Chronic? @ -acute Uncomplicated (without systemic symptoms) or Complicated (systemic symptoms)? @ -uncomplicated Side effects of treatment? @ -no Exacerbation, Progression, or Severe Exacerbation] @ -no Poses a threat to life or bodily function? @ -no Reevaluation #5: 09/08/22 23:03 Differential Chest Pain: Stable Angina, Unstable Angina, STEMI, NSTEMI Aortic Dissection, Pneumothorax, Musculoskeletal, Esophageal Spasm GERD, Cholecystitis, Pancreatitis, Zoster, this is not meant to be an all-inclusive list. Chest Pain MDM - MDM 62 male to the emergency department for evaluation of chest pain. Patient states he is aware that he will not get a stress test for further evaluation here on a weekend, he will follow-up with his painting manager out of [facility] Disposition Clinical Impression: Atypical chest pain, Chest pain Disposition: HOME SELF-CARE Condition: Undetermined Instructions (If sedation given, give patient instructions): Chest Pain (ED) Is patient prescribed a controlled substance at d/c from ED?: No Referrals: None,Stated [REFERRING] - 1-2 days Time of Disposition: 20:00
[2022-09-08 18:38] VITALS: BP 129/88; PULSE 87; TEMP 98
== END 2022-09-08 18:36 | disposition home or self-care (01) ==
LOC: EC 16:09
DX: R07.89 Other chest pain (principal); I10 Essential (primary) hypertension; E78.5 Hyperlipidemia, unspecified; I25.2 Old myocardial infarction; Z79.82 Long term (current) use of aspirin; Z79.02 Long term (current) use of antithrombotics/antiplatelets; Z79.899 Other long term (current) drug therapy
CPT/HCPCS: 36415; 71046; 80053; 83735; 84484; 85025; 85610; 85730; 93005; 99285